=== PATIENT | female | born 1990 | race Caucasian/White ===

== ENCOUNTER → 2023-06-24 | Outpatient (REF) | payer BC, SELFPAY | LOC: DHSLP | PROVIDERS: ATTENDING PHYSICIAN Internal Medicine; FAMILY PHYSICIAN Family Medicine | DX: G47.33 Obstructive sleep apnea (adult) (pediatric) (principal) | CPT/HCPCS: 95800 ==

== ENCOUNTER → 2023-06-25 15:43 | Outpatient (REF) | payer BC, SELFPAY | LOC: RAD 15:43 | PROVIDERS: ATTENDING PHYSICIAN Family Medicine | DX: M54.50 Low back pain, unspecified (principal) | CPT/HCPCS: 72110 ==

== ENCOUNTER → 2024-02-25 16:18 | Outpatient (REF) | payer BC, SELFPAY | LOC: RAD 16:18 | PROVIDERS: ATTENDING PHYSICIAN Family Medicine | DX: M25.572 Pain in left ankle and joints of left foot (principal) | CPT/HCPCS: 73610 ==

== ENCOUNTER 2024-06-01 04:38 | Emergency (ER) | payer BC, SELFPAY ==
[2024-06-01 04:40] VITALS: BP 169/116
--- NOTE | 2024-06-01 04:59 | ED.GENMED ---
History of Present Illness
General
Chief Complaint: Flank Pain
Source: patient and previous hospital records (ED visit September 2028 for similar complaints of right flank pain, hematuria. CAT scan revealed 3 mm stone right UVJ with mild hydronephrosis.)
Exam Limitations: none
Time Seen by Provider: 06/01/24 04:50
Nursing documentation reviewed up to this point in time: agreed with
History of Present Illness
History of Present Illness:
This is a 33-year-old woman who presents with abrupt onset of moderate right flank pain that radiates around to her right lower quadrant that woke her from sleep approximately 30 minutes prior to arrival. She did note moderate hematuria upon waking
without dysuria nor urinary frequency. She admits to nausea without vomiting. No fever but admits to mild diaphoresis and feeling somewhat restless. She has history of kidney stones having passed a stone September 2018 and then again 2 years ago.
Current symptoms feel very similar to previous episodes of renal colic.
She denies risk of ; last normal menstrual period began 1 week ago, normal and on time.
She has not taken anything for pain.
Past History
Past History
ED Past Medical History: GERD and Other (Kidney stones); Negative Asthma, HTN, Hypercholesterolemia or NIDDM
ED Past Surgical History: None
Social History
Tobacco: Non-smoker
Alcohol: None
Drug: None
Personal: Single
Living: with family
Employment: Employed
Family History
Family History: Other (Brother with history of kidney stones)
Phy Exam
Physical Exam
Physical Exam:
GENERAL: 33-year-old obese woman appears her stated age. Awake and alert, appears mildly uncomfortable, mildly restless but easily communicative.
EYE: anicteric
NECK: Supple, nontender, no meningismus, no significant adenopathy.
ENT: oral mucosa is moist. No rhinorrhea.
CARDIAC: Regular rate and rhythm. no murmur.
LUNGS: Clear breath sounds bilaterally, no acute respiratory distress, no wheezes/rales/rhonchi
ABDOMEN: Rotund, soft, nondistended, without focal tenderness, no r/g, mild right CVA tenderness with percussion. Normoactive BS.
NEUROLOGICAL: Alert and oriented x3, no focal neuro deficits. Gait is richardson and steady.
SKIN: Warm and mildly diaphoretic, minimally pale in color, skin intact. No rash.
MUSCULOSKELETAL: No C/C/E. peripheral pulses are full and equal b/l. No palpable tenderness.
PSYCH: Normal and appropriate interaction.
Course
Orders/Labs/Results
Orders:
Orders
06/01/24 04:49
Urine Reflex Culture from UA [Urinalysis Reflex To Culture] Urgent
Date Specimen was Collected: 06/01/24
Time Specimen was Collected: 04:49
06/01/24 04:54
CT Abd/pel Without Iv Or Oral Urgent
Comment:
Reason For Exam: acute R flank pain; hematuria
06/01/24 04:57
0.9% Sodium Chloride 1000 ml [Nss] 1,000 ml IV BOLUS
Ketorolac [Toradol] 30 mg IV NOW STA
Ondansetron Injectable [Zofran] 4 mg IV NOW STA
06/01/24 05:09
Complete Blood Count/With Diff Urgent
Comprehensive Metabolic Panel Urgent
06/01/24 05:39
Tamsulosin [Flomax] 0.4 mg PO NOW STA
Abnormal Lab Results
06/01/24
05:09
Hgb 11.4 L g/dL
(12.0-16.0)
Hct 35.5 L %
(37.0-47.0)
MCV 77.7 L fL
(81.0-99.0)
MCH 24.9 L pg
(27.0-31.0)
MCHC 32.1 L g/dL
(33.0-37.0)
RDW 14.8 H %
(11.5-14.5)
Abs Immat Gran (auto) 0.1 H 10^3/uL
(0-0.05)
Immature Gran % 0.7 H %
(0-0.5)
BUN 19 H mg/dl
(7-17)
Glucose 102 H mg/dl
(70-99)
06/01/24 05:09
06/01/24 05:09
Vital Signs
Initial and Last Documented VS:
Initial Vital Signs
Temp Pulse Resp BP Pulse Ox
99.1 F 96 18 169/116 97
06/01/24 04:40 06/01/24 04:40 06/01/24 04:40 06/01/24 04:40 06/01/24 04:40
Last Documented Vital Signs
Temp Pulse Resp BP Pulse Ox
99.1 F 96 18 169/116 97
06/01/24 04:40 06/01/24 04:40 06/01/24 04:40 06/01/24 04:40 06/01/24 04:40
MDM/Problems Addressed
Differential Diagnosis Includes:
Concern for renal colic related to ureteric stone, concern for UTI/pyelonephritis.
Musculoskeletal flank pain, bowel obstruction are considered but unlikely.
Will check labs, urinalysis and plan for CT abdomen pelvis.
Will medicate for pain and nausea with Toradol, Zofran and initiate IV fluids.
Chronic conditions affecting care: Other (History of kidney stones)
*Radiology
Radiology exam reviewed: radiology read reviewed
*Pulse Oximetry
Patient hypoxic: no
*Critical Care Note
Total Time (30-74mins, 75-104mins- exclusive of procedures): Not Applicable
Update Note
Update Note:
05:45
Patient resting comfortably and reports moderate improvement in right flank pain. No further nausea. No further diaphoresis.
CAT scan shows a 3 mm stone proximal right ureter with mild hydronephrosis.
CBC is unremarkable. Chemistries and urinalysis are pending.
Will continue IV fluids, give a dose of tamsulosin and continue to observe.
06:30
Patient remains comfortable, pain-free. No further nausea.
Urinalysis pending but patient has had no UTI symptoms, remains afebrile. Low clinical suspicion for UTI.
Will discharge to home with prescription for oral Toradol, Flomax, as needed Zofran and as needed Percocet. Patient
Has an established urologist; recommend she touch base with her urologist today to schedule follow-up appointment.
Return precautions discussed.
ED Attending Note
-
Portions of this chart may have been created with voice recognition software.� Occasional wrong word or��sound alike� substitutions may have occurred due to the inherent limitations of voice recognition software.
Discharge Plan
Departure
Patient Disposition: Home (Routine Discharge)
Date of Disposition: 06/01/24
Time of Disposition: 06:25
Patient with high blood pressure during this ER visit?: No
Condition: Good
Discharge Problem:
Calculus of proximal right ureter
Instructions: Kidney Stones (DC)
Prescriptions:
New
ketorolac 10 mg tablet
10 mg PO Q6H 5 Days Qty: 20 0RF
oxycodone-acetaminophen [Percocet] 5-325 mg Tablet
1 tab PO Q6HPRN PRN (Reason: pain) Qty: 8 0RF
tamsulosin [Flomax] 0.4 mg Capsule
0.4 mg PO DAILY Qty: 14 0RF
ondansetron 4 mg tablet,disintegrating
4 mg PO QID PRN (Reason: nausea and vomiting) Qty: 20 0RF
No Action
omeprazole magnesium [Prilosec OTC] 20 MG tablet,delayed release (DR/EC)
20 mg PO DAILY
cetirizine [Zyrtec] 10 mg Tablet
10 mg PO DAILY
bupropion HCl 150 mg Tablet Extended Release 24 Hr
150 mg PO DAILY
cholecalciferol (vitamin D3) [Vitamin D3] 25 mcg (1,000 unit) Tablet
25 mcg PO DAILY
vitamin U13-stibx acid 500-400 mcg Tablet
1 tab PO DAILY
escitalopram oxalate 20 mg Tablet
20 mg PO DAILY
Referrals:
Thea Marroquin MD [Family Provider] -
Activity Restrictions/Additional Instructions:
Stay well-hydrated on a daily basis.
Call your urologist today to schedule a follow-up appointment.
Interventions
Interventions:
*Risk Screen - Suicide Last Done: 06/01/24 04:40
*General Assessment Last Done: 06/01/24 04:40
*Neglect/Abuse Screening Last Done: 06/01/24 04:40
*ED- Fall Risk Assessment Last Done: 06/01/24 04:40
*ED COVID-19 Vaccine History Last Done: 06/01/24 04:40
SK-Wnmafd-Xcltemnfpy Assessment Last Done: 06/01/24 05:14
ED-Female Genitourinary Assessment Last Done: 06/01/24 05:14
Discharge Date and Time
Print Language: MOSOTHO
[2024-06-01 05:00] VITALS: BMI 81.4
[2024-06-01] MEDS: TORADOL 30 MG IV (05:07)
[2024-06-01] MEDS: ZOFRAN 4 MG IV (05:08)
[2024-06-01] MEDS: NSS 1000 IV (05:08)
[2024-06-01 05:21] LABS: % Basophils 0.6 % (0-2); % Eosinophils 2.5 % (0-6); % Immature Granulocytes 0.7 % (0-0.5); % Lymphocytes 26.3 % (20.5-51.1); % Monocytes 4.8 % (1.7-9.3); % Neutrophils 65.1 % (42.2-75.2); Absolute Basophils 0.1 10^3/uL (0-0.2); Absolute Eosinophils 0.2 10^3/uL (0-0.7); Absolute Immature Granulocytes 0.1 10^3/uL (0-0.05); Absolute Lymphocytes 2.5 10^3/uL (1.2-3.4); Absolute Monocytes 0.5 10^3/uL (0.1-0.6); Absolute Neutrophils 6.1 10^3/uL (1.4-6.5); Hematocrit 35.5 % (37.0-47.0); Hemoglobin 11.4 g/dL (12.0-16.0); Mean Corp Hgb Conc. 32.1 g/dL (33.0-37.0); Mean Corpuscular Hgb 24.9 pg (27.0-31.0); Mean Corpuscular Volume 77.7 fL (81.0-99.0); Mean Platelet Volume 9.4 fL (7.4-10.4); Nucleated Red Blood Cells % 0 %; Platelet Count 331 10^3/uL (130-400); Red Blood Cell Count 4.57 10^6/uL (4.20-5.40); Red Cell Dist. Width 14.8 % (11.5-14.5); White Blood Cell Count 9.4 10^3/uL (4.8-10.8)
[2024-06-01 05:45] LABS: ALT (SGPT) 14 U/L (0-35); AST (SGOT) 15 U/L (14-36); Albumin 4.5 g/dl (3.5-5.0); Alkaline Phosphatase 117 U/L (38-126); Blood Urea Nitrogen 19 mg/dl (7-17); Calcium 9.7 mg/dl (8.4-10.2); Carbon Dioxide 26 mmol/L (22-30); Chloride 106 mmol/L (98-107); Estimated Creatinine Clearance > 125 ml/min; Glucose 102 mg/dl (70-99); Potassium 4.2 mmol/L (3.5-5.1); Sodium 143 mmol/L (135-145); Total Bilirubin 0.4 mg/dl (0.2-1.3); Total Protein 7.7 g/dl (6.3-8.2); eGFR > 60.00
[2024-06-01] MEDS: FLOMAX 0.4 MG PO (05:57)
[2024-06-01 06:47] VITALS: BP 140/78
[2024-06-01 07:01] LABS: Urine Albumin 3+ (Neg - Trace); Urine Bilirubin Negative (Negative); Urine Character Cloudy (Clear); Urine Color Amber; Urine Glucose Negative (Negative); Urine Ketone 1+ (Negative); Urine Leukocyte 1+ (Negative); Urine Nitrite Positive (Negative); Urine Occult Blood 4+ (Negative); Urine Urobilinogen 1+ (Neg - 1+)
[2024-06-01 07:15] LABS: Urine Amorphous Seen; Urine Mucus Many; Urine Red Blood Cell >100 /HPF (0-2); Urine Squamous Cell >30 /LPF (Few)
[2024-06-01 07:18] LABS: Urine Bacteria Many (Negative); Urine White Cell >100 /HPF (0-5)
== END 2024-06-01 06:52 | disposition home or self-care (01) ==
LOC: EMR 04:38
PROVIDERS: EMERGENCY PHYSICIAN Emergency Medicine; FAMILY PHYSICIAN Family Medicine
DX: N13.2 Hydronephrosis with renal and ureteral calculous obstruction (principal)
CPT/HCPCS: 99284; 96374; 96375; 96361; 74176; 80053; 81003; 81015; 85025; 87086

== ENCOUNTER 2024-06-07 11:38 | Inpatient (IN) | payer BC, SELFPAY ==
[2024-06-07] VITALS (22 sets, daily range): BP systolic 120–195; BP diastolic 65–98; BMI 79.8
--- NOTE | 2024-06-07 04:48 | ED.GENMED ---
History of Present Illness
General
Chief Complaint: Fever
Source: patient
Exam Limitations: none
Time Seen by Provider: 06/07/24 04:47
Nursing documentation reviewed up to this point in time: agreed with
History of Present Illness
History of Present Illness:
33-year-old female with a past medical history of GERD, renal stones, who presents emergency department today with concerns of fevers and chills, as well as vomiting and right sided flank pain. Patient reports that this started around 2 hours prior
to arrival to emergency department. Of note, patient was seen in our ER a week ago for a kidney stone on her right side. It is around 5 mm in size. Patient states that she was given Toradol, oxycodone, and Flomax to go home with. Patient states
that she thought the stone passed 3 days ago because she was using the bathroom and thought she heard a sound in the toilet bowl and her pain has been well-controlled however the pain restarted again yesterday. She called her urologist who believes
that the stone might pass and encouraged her to continue to do conservative pain management. Patient reports that she went to bed that night and when she woke up, she will really cold and started to have tremors and took her temperature and noted
that was 101.7. Patient had 3 episodes of vomiting. She denies any burning with urination, any blood in her urine. She had some mild epigastric discomfort which she noticed after vomiting.
Past History
Past History
ED Past Medical History: GERD and Other (Kidney stones); Negative Asthma, HTN, Hypercholesterolemia or NIDDM
ED Past Surgical History: None
Social History
Tobacco: Non-smoker
Alcohol: None
Drug: None
Personal: Single
Living: with family
Employment: Employed
Family History
Family History: Other (Brother with history of kidney stones)
Review of Systems
Review of Systems
All Other Systems: ROS reviewed and negative except as documented in HPI and ROS
Phy Exam
Physical Exam
Physical Exam:
General: Patient is well appearing and in no acute distress; non-toxic
Skin: Warm and dry, no rashes or lesions
Head: Normocephalic, atraumatic
Eyes: Sclera non-icteric. EOMs intact. PERRLA.
Cardiac: Tachycardia noted otherwise regular rhythm, no murmurs
Peripheral Vascular: No lower extremity swelling or edema
Pulm: Normal respiratory effort, no wheezes, rales, or rhonchi
Abdomen: No abdominal tenderness to palpation, no CVA tenderness
Neuro: CN II-XII intact, no focal neurologic deficits.
Psychiatric: Appropriate mood and affect.
Sepsis
Sepsis Screening
Sepsis Assessment: Sepsis
Sepsis Screen
Sepsis Screen: Sepsis
Date: 06/07/24
Time: 09:56
Course
Orders/Labs/Results
Orders:
Orders
06/07/24 04:48
Test Result ONCE
06/07/24 05:04
0.9% Sodium Chloride 1000 ml [Nss] 1,000 ml IV BOLUS
Acetaminophen [Tylenol] 1,000 mg PO NOW STA
Ondansetron Injectable [Zofran] 4 mg IV NOW STA
06/07/24 05:05
CT Abd/pel Without Iv Or Oral Urgent
Comment:
Reason For Exam: rgiht flank pain
06/07/24 05:16
CMP [Comprehensive Metabolic Panel] Urgent
COVID-19 Antigen Urgent
Source: Nasal Swab
Complete Blood Count/With Diff Urgent
HCG, Serum Qualitative Screen Urgent
Lactate Level [Lactic Acid] Urgent
Lipase Urgent
Urinalysis Reflex To Culture Urgent
Date Specimen was Collected: 06/07/24
Time Specimen was Collected: 04:48
Urine Microscopic Reflex Cult Urgent
Influenza A+B Rapid Molecular Urgent
CHIRAG Source: Nasal Swab
Specimen Description:
Urine Culture Urgent
CHIRAG Source: U
Specimen Description:
Date Specimen was Collected: 06/07/24
Time Specimen was Collected: 04:48
06/07/24 07:13
CefTRIAXone [Rocephin] 2,000 mg IV NOW STA
06/07/24 07:25
Sterile Water [Sterile Water For Injection] 20 ml .ROUTE .STK-MED
06/07/24 07:30
Gentamicin Sulfate [Gentamicin] 200 mg 0.9% Sodium Chloride [Nss] 50 ml IV NOW
Ketorolac [Toradol] 15 mg IV NOW STA
06/07/24 09:36
Admit/Transfer Patient As Directed
Co-Sign Provider:
Level of Care: Inpatient admission
Assign to:: IMU- Intermediate Care
Physician / Group: Adonay
Diagnosis: R ureterolithiasis
Reason for Hospitalization: R ureterolithiasis
Expected length of stay greater than two midnights?: Yes
ELOS- Estimated Length of Stay in days: 3
I certify the patient meets the requirements for IP care: Yes
06/07/24 09:37
Code Status As Directed
Resuscitation Status: Full Code
06/07/24 Lunch
NPO
Allow oral meds: No
Allow clear liquids: No
NPO with Ice Chips: No
Abnormal Lab Results
06/07/24
05:16
WBC 13.6 H 10^3/uL
(4.8-10.8)
RBC 4.19 L 10^6/uL
(4.20-5.40)
Hgb 10.6 L g/dL
(12.0-16.0)
Hct 32.3 L %
(37.0-47.0)
MCV 77.1 L fL
(81.0-99.0)
MCH 25.3 L pg
(27.0-31.0)
MCHC 32.8 L g/dL
(33.0-37.0)
RDW 14.6 H %
(11.5-14.5)
Abs Immat Gran (auto) 0.1 H 10^3/uL
(0-0.05)
Absolute Neuts (auto) 12.2 H 10^3/uL
(1.4-6.5)
Absolute Lymphs (auto) 0.7 L 10^3/uL
(1.2-3.4)
Immature Gran % 0.7 H %
(0-0.5)
Neutrophils % 89.4 H %
(42.2-75.2)
Lymphocytes % 4.9 L %
(20.5-51.1)
Glucose 112 H mg/dl
(70-99)
Ur Occult Blood Reflex 2+ A
(Negative)
Leukocyte Esterase Rfl 2+ A
(Negative)
Urine RBC 11-15 A /HPF
(0-2)
Urine WBC (Reflex) 11-15 A /HPF
(0-5)
Urine Bacteria (Reflex) Many A
(Negative)
Urine Albumin (Reflex) 1+ A
(Neg - Trace)
06/07/24 05:16
06/07/24 05:16
Vital Signs
Initial and Last Documented VS:
Initial Vital Signs
Temp Pulse Resp BP Pulse Ox
103.0 F H 122 30 149/80 96
06/07/24 05:02 06/07/24 05:02 06/07/24 05:02 06/07/24 05:02 06/07/24 05:02
Last Documented Vital Signs
Temp Pulse Resp BP Pulse Ox
99.8 F 113 36 120/72 98
06/07/24 08:37 06/07/24 08:15 06/07/24 08:15 06/07/24 08:24 06/07/24 08:15
MDM/Problems Addressed
Differential Diagnosis Includes:
ddx include UTI, pyelo, renal stone, influenza, COVID-19, gastroenteritis/viral syndrome
MDM/Problems Addressed:
History and presentation concerning for infected renal stone. No other explanation for patient's fever. Urinalysis concerning for infection. Discussed case with urology, will start Rocephin and gentamicin, made NPO, pt referred for admission.
*Critical Care Note
Total Time (30-74mins, 75-104mins- exclusive of procedures): Not Applicable
ED Attending Note
-
Portions of this chart may have been created with voice recognition software.� Occasional wrong word or��sound alike� substitutions may have occurred due to the inherent limitations of voice recognition software.
Discharge Plan
Departure
Patient Disposition: Admit
Date of Disposition: 06/07/24
Time of Disposition: 07:30
Admit to: Med/Surg
Presentation/result/management discussed w/ accepting MD/DO: Hospitalist
Patient with high blood pressure during this ER visit?: Yes
Condition: Fair
Discharge Problem:
Nephrolithiasis, Urinary tract infection
Prescriptions:
No Action
omeprazole magnesium [Prilosec OTC] 20 MG tablet,delayed release (DR/EC)
20 mg PO DAILY
cetirizine [Zyrtec] 10 mg Tablet
10 mg PO DAILY
bupropion HCl 150 mg Tablet Extended Release 24 Hr
150 mg PO DAILY
cholecalciferol (vitamin D3) [Vitamin D3] 25 mcg (1,000 unit) Tablet
25 mcg PO DAILY
escitalopram oxalate 20 mg Tablet
20 mg PO DAILY
Ozempic 0.25 mg or 0.5 mg(2 mg/1.5 mL) Pen Injector
0.5 mg SC SA
Patient Comments:
patient has free samples
cyanocobalamin (vitamin B-12) 1,000 mcg Tablet
1,000 mcg PO DAILY
ketorolac 10 mg Tablet
10 mg PO Q6HPRN PRN (Reason: mild pain)
oxycodone-acetaminophen [Percocet] 5-325 mg Tablet
1 tab PO Q6HPRN PRN (Reason: severe pain)
tamsulosin [Flomax] 0.4 mg Capsule
0.4 mg PO DAILY
Rx Instructions:
for 14 days starting 06/01/24
ibuprofen [Advil] 200 mg Tablet
400 mg PO Q6HPRN PRN (Reason: mild pain)
ondansetron [Zofran ODT] 4 mg Tablet,Disintegrating
4 mg PO Q6HPRN PRN (Reason: nausea)
Referrals:
UNKNOWN - PT DOES,NOT KNOW [Family Provider] -
Interventions
Interventions:
*Risk Screen - Suicide Last Done: 06/07/24 04:56
*General Assessment Last Done: 06/07/24 04:57
*Neglect/Abuse Screening Last Done: 06/07/24 04:56
*ED- Fall Risk Assessment Last Done: 06/07/24 04:56
*ED COVID-19 Vaccine History Last Done: 06/07/24 04:56
DB-Zacuqj-Hpgkcoifgm Assessment Last Done: 06/07/24 05:26
ED-Female Genitourinary Assessment Last Done: 06/07/24 05:26
ED- Neurological Assessment Last Done: 06/07/24 07:12
ED-Skin Assessment Last Done: 06/07/24 05:26
Discharge Date and Time
Print Language: WELSH
[2024-06-07] MEDS: TYLENOL 1000 MG PO (05:19)
[2024-06-07] MEDS: NSS 1000 IV ×3 (05:19→21:08)
[2024-06-07] MEDS: ZOFRAN 4 MG IV (05:20)
[2024-06-07 05:31] LABS: % Basophils 0.3 % (0-2); % Eosinophils 1.1 % (0-6); % Immature Granulocytes 0.7 % (0-0.5); % Lymphocytes 4.9 % (20.5-51.1); % Monocytes 3.6 % (1.7-9.3); % Neutrophils 89.4 % (42.2-75.2); Absolute Eosinophils 0.2 10^3/uL (0-0.7); Absolute Immature Granulocytes 0.1 10^3/uL (0-0.05); Absolute Lymphocytes 0.7 10^3/uL (1.2-3.4); Absolute Monocytes 0.5 10^3/uL (0.1-0.6); Absolute Neutrophils 12.2 10^3/uL (1.4-6.5); Hematocrit 32.3 % (37.0-47.0); Hemoglobin 10.6 g/dL (12.0-16.0); Mean Corp Hgb Conc. 32.8 g/dL (33.0-37.0); Mean Corpuscular Hgb 25.3 pg (27.0-31.0); Mean Corpuscular Volume 77.1 fL (81.0-99.0); Mean Platelet Volume 9.7 fL (7.4-10.4); Nucleated Red Blood Cells % 0 %; Platelet Count 253 10^3/uL (130-400); Red Blood Cell Count 4.19 10^6/uL (4.20-5.40); Red Cell Dist. Width 14.6 % (11.5-14.5); White Blood Cell Count 13.6 10^3/uL (4.8-10.8)
[2024-06-07 05:34] LABS: Urine Albumin 1+ (Neg - Trace); Urine Bilirubin Negative (Negative); Urine Character Slightly Cloudy (Clear); Urine Color Yellow; Urine Glucose Negative (Negative); Urine Ketone Negative (Negative); Urine Leukocyte 2+ (Negative); Urine Nitrite Negative (Negative); Urine Occult Blood 2+ (Negative); Urine Urobilinogen Negative (Neg - 1+)
[2024-06-07 05:43] LABS: HCG, Serum Qualitative Screen Negative
[2024-06-07 05:51] LABS: ALT (SGPT) 15 U/L (0-35); AST (SGOT) 19 U/L (14-36); Albumin 4.1 g/dl (3.5-5.0); Alkaline Phosphatase 99 U/L (38-126); Blood Urea Nitrogen 16 mg/dl (7-17); Calcium 9.6 mg/dl (8.4-10.2); Carbon Dioxide 25 mmol/L (22-30); Chloride 105 mmol/L (98-107); Estimated Creatinine Clearance > 125 ml/min; Glucose 112 mg/dl (70-99); Lipase 43 U/L (23-300); Potassium 3.9 mmol/L (3.5-5.1); Sodium 142 mmol/L (135-145); Total Bilirubin 0.4 mg/dl (0.2-1.3); Total Protein 7.2 g/dl (6.3-8.2); eGFR > 60.00
[2024-06-07 05:55] LABS: COVID-19 Antigen Negative (Negative)
[2024-06-07 05:56] LABS: Lactic Acid 1.6 mmol/L (0.7-2.0)
[2024-06-07 06:07] LABS: Urine Squamous Cell >30 /LPF (Few)
[2024-06-07 06:09] LABS: Urine Bacteria Many (Negative)
[2024-06-07] MEDS: ROCEPHIN 2000 MG IV ×2 (07:31→19:37)
[2024-06-07] MEDS: TORADOL 15 MG IV (07:33)
[2024-06-07] MEDS: GENTAMICIN 55 MG IV (07:46)
--- NOTE | 2024-06-07 08:51 | HPS.HSE ---
Family Physician
-
Family Physician: NOT KNOW UNKNOWN - PT DOES
Chief Complaint
-
Right flank pain and fever
History of Present Illness
33 y/o F with PMHx:
Morbid obesity due to excess calories
GERD
who p/w CC R flank pain. The patient was seen in the ER 06/01/24 for similar complaints. She was found to have a 5mm R UPJ stone with minimal right hydronephrosis. She was discharged on Flomax which she has been compliant with. 3 days ago she felt
that she may have passed the stone but did not catch it on straining. Yesterday the patient's symptoms worsened. She reports having vomiting and a fever of 103 �F. Denies any other acute complaints. Presented to the ER for these reasons.
Medical History
Past Medical History
Past Medical History: Reports Other (Morbid obesity due to excess calories, GERD)
Past Surgical History: Reports Other (N/A)
Social History
Tobacco: Non-smoker
Alcohol: None
Drug: None
Family History
Family History: Not pertinent
Allergies / Home Medications
Allergies reflects when Allergies were last updated in [facility].
Home Medications with original date entered in [facility]
Allergy/Medication List:
Allergies
Allergy/AdvReac Type Severity Reaction Status Date / Time
amoxicillin [Amoxicillin] Allergy Rash Verified 06/07/24 04:41
Penicillins Allergy Unknown Verified 06/07/24 04:41
sulfamethoxazole Allergy Itching Verified 06/07/24 04:41
[From Bactrim]
trimethoprim [From Bactrim] Allergy Itching Verified 06/07/24 04:41
Home Medications
omeprazole magnesium 20 mg tablet,delayed release (Prilosec OTC) 20 mg PO DAILY 10/17/18
bupropion HCl 150 mg 24 hr tablet, extended release 150 mg PO DAILY 06/01/24
cetirizine 10 mg tablet (Zyrtec) 10 mg PO DAILY 06/01/24
cholecalciferol (vitamin D3) 25 mcg (1,000 unit) tablet (Vitamin D3) 25 mcg PO DAILY 06/01/24
escitalopram oxalate 20 mg tablet 20 mg PO DAILY 06/01/24
cyanocobalamin (vitamin B-12) 1,000 mcg tablet 1,000 mcg PO DAILY 06/07/24
ibuprofen 200 mg tablet (Advil) 400 mg PO Q6HPRN PRN mild pain 06/07/24
ketorolac 10 mg tablet 10 mg PO Q6HPRN PRN mild pain 06/07/24
ondansetron 4 mg disintegrating tablet 4 mg PO Q6HPRN PRN nausea 06/07/24
oxycodone-acetaminophen 5 mg-325 mg tablet (Percocet) 1 tab PO Q6HPRN PRN severe pain 06/07/24
semaglutide 0.25 mg or 0.5 mg (2 mg/1.5 mL) subcutaneous pen injector (Ozempic) 0.5 mg SC SA 06/07/24
tamsulosin 0.4 mg capsule (Flomax) 0.4 mg PO DAILY 06/07/24
Review of Systems
-
History Source: Patient
A 12 point ROS was completed and negative except as noted: Yes
Physical Exam
Vital Signs
Vital Signs
Temp Pulse Resp BP Pulse Ox
99.8 F 113 36 120/72 98
06/07/24 08:37 06/07/24 08:15 06/07/24 08:15 06/07/24 08:24 06/07/24 08:15
Physical Exam
General: Other (.)
Laboratory Results
-
06/07/24 05:16
06/07/24 05:16
Laboratory Results
Lactic Acid 1.6 mmol/L (0.7-2.0) 06/07/24 05:16
Total Bilirubin 0.4 mg/dl (0.2-1.3) 06/07/24 05:16
AST 19 U/L (14-36) 06/07/24 05:16
ALT 15 U/L (0-35) 06/07/24 05:16
Alkaline Phosphatase 99 U/L (38-126) 06/07/24 05:16
Lipase 43 U/L (23-300) 06/07/24 05:16
Impression/Plan
-
Gen: NAD, AAOx3.
Eyes: EOMI, PERRLA, no scleral icterus.
Neck: supple.
CV: tachycardic, reg rhythm, +S1/S2, no m/r/g.
Resp: CTAB, no rales, wheezes, or rhonchi.
Abd: +BS, soft, R-sided TTP, ND
Skin: No rashes.
Neuro: CN 2-12 intact, non-focal.
Psych: Normal mood and affect.
CT A/P 06/07/24:
1. 5 mm stone within the proximal right ureter, located approximately 2 cm inferior to the right ureteropelvic junction. This stone has migrated approximately 1 cm distally compared to prior CT dated 06/01/2024. Mild right hydronephrosis is not
significantly changed compared to prior study.
2. No additional stones are appreciated.
Sepsis and mild right hydronephrosis due to 5mm right ureterolithiasis:
-Sepsis criteria of leukocytosis, tachycardia, and fever of 103 F at home. Note urinalysis is contaminated with greater than 30 squamous cells.
-given Gentamicin and Rocephin in the ER
-cont Rocephin 2g IV Q24H due to weight (discussed with Dr. Cunningham who has been consulted)
-aggressive IVFs
-Urology consulted, for OR for R ureteral stent placement
-admit to IMU as these pts can have rapid hemodynamic decompensation.
Morbid obesity due to excess calories
GERD: cont PPI
Case discussed with Drs. BellAngela over [employer] and Dr. Cunningham over the phone.
Family updated at bedside.
FULL/Lovenox/IMU
--- NOTE | 2024-06-07 10:29 | CONS.URO ---
Consultation
-
Date/Time Consultation Performed: 06/07/2024
Requesting Provider: ED
Performing Provider: Erick
Reason for Consultation: Right Ureteral Stone + sepsis
Medical History
History of Present Illness
Dr. Urias's admission note, excerpt: 'The patient was seen in the ER 06/01/24 for similar complaints. She was found to have a 5mm R UPJ stone with minimal right hydronephrosis. She was discharged on Flomax which she has been compliant with. 3 days
ago she felt that she may have passed the stone but did not catch it on straining. Yesterday the patient's symptoms worsened. She reports having vomiting and a fever of 103 �F. '
no personal prior stone hx
FH of stones with sepsis
Past Medical History
Past Medical History: Other (morbid obesity)
Past Surgical History: None
Social History
Personal: Single
Living: With Family
Family History
Family History: Other (stones with sepsis)
Allergies/Home Medications
Allergies
Allergy/AdvReac Type Severity Reaction Status Date / Time
amoxicillin [Amoxicillin] Allergy Rash Verified 06/07/24 04:41
Penicillins Allergy Unknown Verified 06/07/24 04:41
sulfamethoxazole Allergy Itching Verified 06/07/24 04:41
[From Bactrim]
trimethoprim [From Bactrim] Allergy Itching Verified 06/07/24 04:41
Home Medications
�Medication �Instructions �Recorded �Confirmed �Type
omeprazole magnesium 20 mg 20 mg PO DAILY 10/17/18 06/07/24 History
tablet,delayed release (Prilosec
OTC)
bupropion HCl 150 mg 24 hr tablet, 150 mg PO DAILY 06/01/24 06/07/24 History
extended release
cetirizine 10 mg tablet (Zyrtec) 10 mg PO DAILY 06/01/24 06/07/24 History
cholecalciferol (vitamin D3) 25 25 mcg PO DAILY 06/01/24 06/07/24 History
mcg (1,000 unit) tablet (Vitamin
D3)
escitalopram oxalate 20 mg tablet 20 mg PO DAILY 06/01/24 06/07/24 History
cyanocobalamin (vitamin B-12) 1,000 mcg PO DAILY 06/07/24 06/07/24 History
1,000 mcg tablet
ibuprofen 200 mg tablet (Advil) 400 mg PO Q6HPRN PRN mild pain 06/07/24 06/07/24 History
ketorolac 10 mg tablet 10 mg PO Q6HPRN PRN mild pain 06/07/24 06/07/24 History
ondansetron 4 mg disintegrating 4 mg PO Q6HPRN PRN nausea 06/07/24 06/07/24 History
tablet
oxycodone-acetaminophen 5 mg-325 1 tab PO Q6HPRN PRN severe pain 06/07/24 06/07/24 History
mg tablet (Percocet)
semaglutide 0.25 mg or 0.5 mg (2 0.5 mg SC SA 06/07/24 06/07/24 History
mg/1.5 mL) subcutaneous pen
injector (Ozempic)
tamsulosin 0.4 mg capsule (Flomax) 0.4 mg PO DAILY 06/07/24 06/07/24 History
Review of Systems
-
History Source: Patient
Constitutional: Reports Fever and Chills
Respiratory: Reports No Symptoms
Cardiac: Reports No Symptoms
Abdomen/GI: Reports Nausea and Vomiting
Neurological: Reports Headache
Physical Exam
Vital Signs
Vital Signs
Temp Pulse Resp BP Pulse Ox
99.8 F 113 36 120/72 98
06/07/24 08:37 06/07/24 08:15 06/07/24 08:15 06/07/24 08:24 06/07/24 08:15
Lab / Testing Results
Laboratory Results
06/07/24 05:16
06/07/24 05:16
Physical Exam
adult female on ED gurney
General: Other (upset; mother at bedside)
GI: Other (pannus)
Genito-urinary: Costovertebral Angle Tend (right)
Neuro: Awake and Alert
Psych: Anxious
Assessment / Plan
-
Right ureteral stone: 5 mm, proximal, obstructing
signs of evolving urosepsis
Plan: emergently to OR for dislodgement of right ureteral stone and stent placment
consent signed in presence of mother in OR holding
Data Reviewed
-
CT Scan: Image personally visualized and interpreted
Lab Data: Labs Reviewed
Old Records: Reviewed
--- NOTE | 2024-06-07 11:25 | W.IMMPOSTOP ---
Surgical Immed Post Op Note
-
Primary Surgeon: Erick
Pre-op Diagnosis: Right Ureteral Calculus: 5 mm, proximal, obstructing; UTI with evolving sepsis
Post-op Diagnosis:same
Procedure Performed: cystoscopy,dislodgement of right ureteral stone, ureteral stenting
Anesthesia Type: LMA
Specimen / Cultures: none
Estimated Blood Loss: none
Complications: none
Operative Findings: 5 mm, proximal ureteral stone; upon dislodgement, purulent urine propulsed from ureter via and along stent
6 Fr, 24 JJ right ureteral stent
d/w mother immediately post-op
[2024-06-07] MEDS: SUBLIMAZE 50 MCG IV ×2 (13:14→13:33)
--- NOTE | 2024-06-07 13:25 | CON.ID ---
Consultation
-
Date/Time Consultation Requested: 06/07/24 10:09
Date/Time Consultation Performed: 06/07/24 13:25
Requesting Provider: Dr Urias
Performing Provider: Dr Cunningham
Reason for Consultation: sepsis due to UTI/ureterothiasis
Chief Complaint / Past History
Chief Complaint
UTI
History of Present Illness
Ms Clifford is a 31 year old female with history of class 3 obesity (BMI 80) who presented here for R flank pain, of note with a known 5 mm R UPJ stone with minimal right hydronephrosis, treatment was attempted with floxmax 06/01, she initially felt
that she might have pass the stone as symptoms improved though she did not see it on straining, then 06/06 yesterday the symptoms relapsed and progressed, she developed vomiting and fever to 103 and presented here
Since arrival here she has been spiking fevers to 103.0, bp has been hypertensive, mildly tachycardic, wbc initially 13.6, hgb 10.6, plt 253, L shift is noted, cr 0.8, lfts wnl, hcg negative, initial UA with >30 squamous cells and 11-15 wbcs, many
bacteria, covid ag negative, CT a/p without IV or oral contrast: 5 mm stone within the proximal right ureter, located approximately 2 cm inferior to the right ureteropelvic junction. This stone has migrated approximately 1 cm distally compared to
prior CT dated 06/01/2024. Mild right hydronephrosis is not significantly changed compared to prior study, urine culture was obtained prior to relief of obstuction, patient was taken to the OR '5 mm, proximal ureteral stone; upon dislodgement,
purulent urine propulsed from ureter via and along stent' however was not sent for culture. I have ordered stat urine culture to be obtained in the PACU, blood cultures x2 are in progress, patient has received a dose a gentamicin and ceftriaxone,
ID is consulted for assistance with management of antibiotics.
Past History
Additional Past Medical History:
GERD
Past Surgical History: None
Allergy History:
amoxicillin [Amoxicillin] Allergy (Verified 06/07/24 04:41)
Rash
Penicillins Allergy (Verified 06/07/24 04:41)
Unknown
sulfamethoxazole [From Bactrim] Allergy (Verified 06/07/24 04:41)
Itching
trimethoprim [From Bactrim] Allergy (Verified 06/07/24 04:41)
Itching
Medications Reviewed: Yes
Social History
Tobacco: Non-Smoker
Alcohol: None
Drug: None
Family History
Family History: Not Pertinent
Review of Systems
Review of Systems
General: Fever and Chills
All systems: All other systems were reviewed and were negative
Vital Signs
Temp Pulse Resp BP Pulse Ox
97.8 F 102 25 145/79 92
06/07/24 11:30 06/07/24 13:15 06/07/24 13:15 06/07/24 13:15 06/07/24 13:15
Physical Exam
Physical Exam
Constitutional: No Acute Distress and Acutely Ill
Cardiovascular: Regular Rate and S1/S2; Negative Murmur or Rub
Pulmonary: Clear and Symmetric; Negative Wheezes, Rales or Rhonchi
Gastrointestinal: Soft, Non Tender, Non Distended and Normal Bowel Sounds
Genito-Urinary: Negative Suprapubic Tenderness
Skin: Warm and Dry; Negative Rash or Jaundice
Lab / Diagnostic Study Results
06/07/24 05:16
06/07/24 05:16
Abs Immat Gran (auto) 0.1 10^3/uL (0-0.05) H 06/07/24 05:16
Absolute Neuts (auto) 12.2 10^3/uL (1.4-6.5) H 06/07/24 05:16
Absolute Lymphs (auto) 0.7 10^3/uL (1.2-3.4) L 06/07/24 05:16
Absolute Monos (auto) 0.5 10^3/uL (0.1-0.6) 06/07/24 05:16
Absolute Basos (auto) 0.0 10^3/uL (0-0.2) 06/07/24 05:16
Immature Gran % 0.7 % (0-0.5) H 06/07/24 05:16
Neutrophils % 89.4 % (42.2-75.2) H 06/07/24 05:16
Lymphocytes % 4.9 % (20.5-51.1) L 06/07/24 05:16
Monocytes % 3.6 % (1.7-9.3) 06/07/24 05:16
Eosinophils % 1.1 % (0-6) 06/07/24 05:16
Basophils % 0.3 % (0-2) 06/07/24 05:16
Lactic Acid 1.6 mmol/L (0.7-2.0) 06/07/24 05:16
Ur Squamous Epith Cells >30 /LPF (Few) 06/07/24 05:16
Microbiology Results
Micro:
06/07/24 12:36 Blood Culture - Pending
Blood/Venous
06/07/24 12:50 Blood Culture - Pending
Blood/Venous
06/07/24 12:00 Urine Culture - Pending
Urine
06/07/24 05:16 Influenza Types A & B (NELL) - Final
Nasal Swab Negative for Influenza A & B, NAAT
Negative results must be combined with clinical observations
and patient history.
Nucleic Acid Amplification test (NAAT)performed on the
[employer] NOW platform.
06/07/24 05:16 Urine Culture - Pending
Urine
Assessment / Plan
Obstructive Pyelonephritis
Class III obesity
Reported allergy to penicillin, amoxicillin, bactrim
- blood cultures x2
- repeat urine culture now that obstruction relieved - ideally this would have been sent from the OR; note that urine cultures prior to relief of obstruction are frequently falsely negative
- had single dose of gentamicin
- increased ceftriaxone to 2 gm IV q12 hours given BMI >40 - reviewed with clinical pharmacist Jennifer Quintanilla
- check QTc
- follow clinically
- recommend outpatient follow up with [facility] for medical weight loss management or bariatric surgery which would improve intermediate morbidity/mortality.
--- NOTE | 2024-06-07 16:00 | PTCARENOTE ---
Patient received from PACU. AUSTIN GOLDEN. Questions answered at bedside from PSYCHOLOGIST. IVF @ 150mL through IV. Admission questions done. Oriented to room. Mother at bedside. Call ocasio in reach.
[2024-06-07] MEDS: NSS (PRESERVATIVE FREE) 10 ML IV (16:17)
[2024-06-07] MEDS: PROTONIX IV 40 MG IV (16:17)
[2024-06-07] MEDS: TYLENOL 650 MG PO (16:26)
[2024-06-07] MEDS: LOVENOX 60 MG SC (18:18)
[2024-06-07] MEDS: STERILE WATER FOR INJECTION 20 ML IV (19:37)
[2024-06-08] VITALS (29 sets, daily range): BP systolic 85–176; BP diastolic 62–113; PULSE 95
--- NOTE | 2024-06-08 01:02 | PTCARENOTE ---
Caring for pt overnight. aaox3, pleasant. NSR/ST, remains 5LNC, GALLARDO. BSCX1. Denies pain. Yellow urine. IVF. Will continue to monitor.
[2024-06-08] MEDS: NSS 1000 IV (04:08)
--- NOTE | 2024-06-08 06:29 | PTCARENOTE ---
Bp's trending up this am. Afebrile, denies pain. [employer] aware, IVF stopped & orders to monitor.
[2024-06-08 06:31] LABS: Hematocrit 29.5 % (37.0-47.0); Hemoglobin 9.8 g/dL (12.0-16.0); Mean Corp Hgb Conc. 33.2 g/dL (33.0-37.0); Mean Corpuscular Hgb 25.1 pg (27.0-31.0); Mean Corpuscular Volume 75.6 fL (81.0-99.0); Mean Platelet Volume 9.7 fL (7.4-10.4); Platelet Count 214 10^3/uL (130-400); Red Cell Dist. Width 14.7 % (11.5-14.5); White Blood Cell Count 7.5 10^3/uL (4.8-10.8)
--- NOTE | 2024-06-08 07:37 | W.PN.HOSP.TC ---
Today's Communication/Plan
-
see plan
Assessment / Plan
Assessment / Plan
Gen: NAD, AAOx3.
Eyes: EOMI, PERRLA, no scleral icterus.
Neck: supple.
CV: Remains tachycardic, reg rhythm, +S1/S2, no m/r/g.
Resp: CTAB (noting distant breath sounds due to body habitus, no rales, wheezes, or rhonchi.
Abd: +BS, soft, nontender to light palpation, ND
Skin: No rashes.
Neuro: CN 2-12 intact, non-focal.
Psych: Normal mood and affect.
06/07/24 05:16 Nasal Swab Influenza Types A & B (NELL) - Final
Negative for Influenza A & B, NAAT
Negative results must be combined with clinical observations
and patient history.
Nucleic Acid Amplification test (NAAT)performed on the
[email or web address] ID NOW platform.
CT A/P 06/07/24:
1. 5 mm stone within the proximal right ureter, located approximately 2 cm inferior to the right ureteropelvic junction. This stone has migrated approximately 1 cm distally compared to prior CT dated 06/01/2024. Mild right hydronephrosis is not
significantly changed compared to prior study.
2. No additional stones are appreciated.
Sepsis and mild right hydronephrosis due to 5mm right ureterolithiasis:
-Sepsis criteria of leukocytosis, tachycardia, and fever of 103 F at home at time of admission. Note urinalysis was contaminated with greater than 30 squamous cells.
-given Gentamicin and Rocephin in the ER
-cont Rocephin 2g IV Q24H due to weight as per ID
-s/p OF 06/07/24 cystoscopy,dislodgement of right ureteral stone, ureteral stenting. Operative findings of 5 mm, proximal ureteral stone; upon dislodgement, purulent urine propulsed from ureter via and along stent
-follow Cxs
Acute hypoxemic respiratory failure:
-Patient was 81% RA this morning and requiring 5L NC O2
-currently obesity related KENNETH/OHS as well as deconditioning is playing a role
-Differential diagnosis is broad. Check echocardiogram and CT angiogram of the chest.
Other problems:
Morbid obesity due to excess calories: Encourage weight loss, affects all aspects of care.
GERD: cont PPI
FULL/Lovenox
Total time spent on today's encounter was 50 minutes which included time spent in counseling the patient/family regarding diagnosis and treatment plan as listed above, goals of care, and symptom management. Case was discussed with nursing staff,
specialists, and care coordinators/case management. All labs and imaging personally reviewed by me. Remainder the time spent in detailed review of previous records, lab data, imaging, and other medical provider documentation.
Anticipated Discharge: 24 - 48 hours
Subjective/Interval History
-
Date of Service: June 08, 2024
Called to bedside because patient tachypneic and tachycardic. Patient was on 5 L nasal cannula oxygen overnight and tachycardic to the 140s as per nursing. Currently the patient denies shortness of breath but feels that it is difficult to breathe
through her upper airway.
Objective Data
-
Labs:
Laboratory Results
06/08/24 06/08/24
06:01 07:23
WBC 7.5
Hgb 9.8 L
Hct 29.5 L
Plt Count 214
Sodium Cancelled Pending
Potassium Cancelled Pending
Chloride Cancelled Pending
Carbon Dioxide Cancelled Pending
BUN Cancelled Pending
Creatinine Cancelled Pending
Glucose Cancelled Pending
Calcium Cancelled Pending
Vital Signs:
Vital Signs
Temp Pulse Resp BP Pulse Ox
98.2 F 92 18 176/97 92
06/08/24 06:14 06/08/24 06:05 06/08/24 06:05 06/08/24 06:05 06/08/24 06:05
I&O
06/07/24 06/08/24 06/09/24
06:59 06:59 06:59
Intake Total 900 / 900
Balance 900 / 900
--- NOTE | 2024-06-08 07:51 | PTCARENOTE ---
Addendum entered by Soila Pierce RN 06/08/24 08:51:
Patient is also tachypneic in the 30s. Patient stating that she felt this way prior to coming to the hospital.
Original Note:
Patient in bed, dyspnea with exertion, orthopnea. Pulse ox 81% on room air when in bed. Patient stating that she 'feels short of breath since surgery'. Lungs diminished, nonproductive cough. Discussed with Dr. Urias. Pulse is now 97% on 5 liters via
nasal cannula and while sitting up in bed.
[2024-06-08 08:11] LABS: Blood Urea Nitrogen 10 mg/dl (7-17); Calcium 8.8 mg/dl (8.4-10.2); Carbon Dioxide 24 mmol/L (22-30); Chloride 107 mmol/L (98-107); Estimated Creatinine Clearance > 125 ml/min; Glucose 104 mg/dl (70-99); Potassium 3.9 mmol/L (3.5-5.1); Sodium 139 mmol/L (135-145); eGFR > 60.00
[2024-06-08] MEDS: LEXAPRO 20 MG PO (08:40)
[2024-06-08] MEDS: ZYRTEC 10 MG PO (08:40)
[2024-06-08] MEDS: WELLBUTRIN XL (24 hour extended release) 150 MG PO (08:40)
[2024-06-08] MEDS: FLOMAX 0.4 MG PO (08:40)
[2024-06-08] MEDS: SENOKOT-S 1 TABLET PO (08:40)
[2024-06-08] MEDS: NSS (PRESERVATIVE FREE) 10 ML IV (08:42)
[2024-06-08] MEDS: PROTONIX IV 40 MG IV (08:42)
[2024-06-08] MEDS: STERILE WATER FOR INJECTION 20 ML IV ×2 (08:47→19:39)
[2024-06-08] MEDS: ROCEPHIN 2000 MG IV ×2 (08:47→19:39)
[2024-06-08 09:02] LABS: Glycohemoglobin (HgbA1c) 5.2 % (4.0-5.6)
--- NOTE | 2024-06-08 09:26 | W.PN.ID1 ---
Date of Service
Date of Service: June 08, 2024
Today's Communication
- repeat urine culture now that obstruction relieved in progress - ideally this would have been sent from the OR; note that urine cultures prior to relief of obstruction are frequently falsely negative
- c/w ceftriaxone to 2 gm IV q12 hours given BMI >40
- would continue irregardless of procalcitonin results
- doxycycline was added by pulmonary
Assessment / Plan
Obstructive Pyelonephritis
Class III obesity
Reported allergy to penicillin, amoxicillin, bactrim
- doubt pneumonia, more likely pulmonary edema
- blood cultures x2 no growth to date
- repeat urine culture now that obstruction relieved in progress - ideally this would have been sent from the OR; note that urine cultures prior to relief of obstruction are frequently falsely negative
- c/w ceftriaxone to 2 gm IV q12 hours given BMI >40
- would continue irregardless of procalcitonin results
- doxycycline was added by pulmonary
- check QTc
- follow clinically
- she is on ozempic, we discussed option of [facility] as well as an additional line of possible treatment.
Chief Complaint
-: UTI
Subjective / Review of Systems
fever resolved
bp hypertensive
reporting minimal nonproductive cough
Vital Signs / Physical Exam
Vital Signs
Vital Signs
Temp Pulse Resp BP Pulse Ox
98.7 F 87 29 123/90 97
06/08/24 07:05 06/08/24 08:03 06/08/24 08:03 06/08/24 07:11 06/08/24 08:23
Physical Exam
Constitutional: No Acute Distress and Chronically Ill
Cardiovascular: Regular Rate and S1/S2; Negative Murmur or Rub
Pulmonary: Clear, Symmetric and Non Labored; Negative Wheezes or Rales
Gastrointestinal: Soft, Non Tender, Non Distended and Normal Bowel Sounds
Skin: Warm and Dry; Negative Rash or Jaundice
Objective Data
Lab Data
Lab Results
06/08/24 06:01
06/08/24 07:23
Estimated Creat Clear > 125 ml/min 06/08/24 07:23
Lactic Acid 1.6 mmol/L (0.7-2.0) 06/07/24 05:16
Total Bilirubin 0.4 mg/dl (0.2-1.3) 06/07/24 05:16
AST 19 U/L (14-36) 06/07/24 05:16
ALT 15 U/L (0-35) 06/07/24 05:16
Alkaline Phosphatase 99 U/L (38-126) 06/07/24 05:16
Most recent labs reviewed.
Micro Results:
06/07/24 12:36 Blood Culture - Pending
Blood/Venous
06/07/24 12:50 Blood Culture - Pending
Blood/Venous
06/07/24 12:00 Urine Culture - Pending
Urine
06/07/24 05:16 Influenza Types A & B (NELL) - Final
Nasal Swab Negative for Influenza A & B, NAAT
Negative results must be combined with clinical observations
and patient history.
Nucleic Acid Amplification test (NAAT)performed on the
[employer] platform.
06/07/24 05:16 Urine Culture - Pending
Urine
[2024-06-08] MEDS: LOVENOX 60 MG SC ×2 (11:07→19:38)
[2024-06-08] MEDS: VIBRAMYCIN 100 MG PO ×2 (11:08→19:39)
[2024-06-08 11:26] LABS: B.E. 0.4 mmol/L; HCO3 24.6 mmol/L (21-28); O2 Saturation % 99.4 % (94-98); PCO2 37 mmHg (32-35); PO2 118 mmHg (83-108); pH 7.43 (7.35-7.45)
--- NOTE | 2024-06-08 11:36 | CON.PUL ---
Consultation
Consultation Request
Date/Time Consultation Requested: 06/08/2024
Date/Time Consultation Performed: 06/08/2024
Requesting Provider: Thompson Urias
Performing Provider: Magnus Sheriff
Reason for Consultation: Hypoxia
Medical History
-
Chief Complaint: Cough/Shortness of breath
History of Present Illness:
Patient is a very pleasant 33-year-old female with known history of obstructive sleep apnea, gastroesophageal reflux disease and nephrolithiasis who presented to the emergency room with right flank pain. She had visited emergency room about a week
ago for similar complaints and was noted to have 5 mm right UPJ stone with minimal right hydronephrosis she had been on Flomax and was compliant with the medication. In view of worsening symptoms she presented back to the emergency room and was
noted to have fever as well as vomiting. Patient had repeat CT abdomen which showed 5 mm stone which was located approximately 2 cm inferior to the right UP junction. Patient subsequently was evaluated by urology and had a cystoscopy with stent
placement. Patient was started on antibiotics and infectious disease service has been on case.
Post surgery, patient has been reporting some cough, nonproductive and was noted to have hypoxia requiring supplemental oxygen which is changed from her baseline. Pulmonary consultation was requested for further recommendations.
Past Medical History: Reports Other (Morbid obesity due to excess calories, GERD)
Past Surgical History: Reports Other (N/A)
Social History
Tobacco: Non-smoker
Alcohol: None
Drug: None
Family History
Family History: Not pertinent
Allergies / Home Medications
Allergies reflects when Allergies were last updated in [facility].
Home Medications with original date entered in [facility]
Allergies / Home Medications
Allergies
Allergy/AdvReac Type Severity Reaction Status Date / Time
amoxicillin [Amoxicillin] Allergy Rash Verified 06/07/24 04:41
Penicillins Allergy Unknown Verified 06/07/24 04:41
sulfamethoxazole Allergy Itching Verified 06/07/24 04:41
[From Bactrim]
trimethoprim [From Bactrim] Allergy Itching Verified 06/07/24 04:41
Home Medications
�Medication �Instructions �Recorded �Confirmed �Last Taken �Type
omeprazole magnesium 20 mg 20 mg PO DAILY 10/17/18 06/07/24 10/17/18 08:20 History
tablet,delayed release (Prilosec
OTC)
bupropion HCl 150 mg 24 hr tablet, 150 mg PO DAILY 06/01/24 06/07/24 06/06/24 History
extended release
cetirizine 10 mg tablet (Zyrtec) 10 mg PO DAILY 06/01/24 06/07/24 Unknown History
cholecalciferol (vitamin D3) 25 25 mcg PO DAILY 06/01/24 06/07/24 Unknown History
mcg (1,000 unit) tablet (Vitamin
D3)
escitalopram oxalate 20 mg tablet 20 mg PO DAILY 06/01/24 06/07/24 06/06/24 History
cyanocobalamin (vitamin B-12) 1,000 mcg PO DAILY 06/07/24 06/07/24 Unknown History
1,000 mcg tablet
ibuprofen 200 mg tablet (Advil) 400 mg PO Q6HPRN PRN mild pain 06/07/24 06/07/24 06/06/24 History
ketorolac 10 mg tablet 10 mg PO Q6HPRN PRN mild pain 06/07/24 06/07/24 Unknown History
ondansetron 4 mg disintegrating 4 mg PO Q6HPRN PRN nausea 06/07/24 06/07/24 Unknown History
tablet
oxycodone-acetaminophen 5 mg-325 1 tab PO Q6HPRN PRN severe pain 06/07/24 06/07/24 Unknown History
mg tablet (Percocet)
semaglutide 0.25 mg or 0.5 mg (2 0.5 mg SC SA 06/07/24 06/07/24 Unknown History
mg/1.5 mL) subcutaneous pen
injector (Ozempic)
tamsulosin 0.4 mg capsule (Flomax) 0.4 mg PO DAILY 06/07/24 06/07/24 06/04/24 History
Review of Systems
-
Hematologic/Lymphatic: Other (All 14 systems reviewed and negative except as stated above in the history of present illness.)
Vitals / Labs / Diagnostic Testing
Vital Signs
Temp Pulse Resp BP Pulse Ox
98.7 F 93 47 148/88 100
06/08/24 07:05 06/08/24 11:00 06/08/24 11:00 06/08/24 10:04 06/08/24 11:00
Lab Data
06/08/24 06:01
06/08/24 07:23
Laboratory Results
06/08/24
11:19
pH 7.43
pCO2 37 H
pO2 118 H
HCO3 24.6
O2 Delivery Level
Microbiology
06/07/24 12:00 Urine Urine Culture - Preliminary
NO GROWTH
06/07/24 05:16 Urine Urine Culture - Final
06/07/24 05:16 Nasal Swab Influenza Types A & B (NELL) - Final
Negative for Influenza A & B, NAAT
Negative results must be combined with clinical observations
and patient history.
Nucleic Acid Amplification test (NAAT)performed on the
[employer] platform.
Diagnostic Testing:
Physical Exam
-
HEENT: Normocephalic
Cardiovascular: S1/S2 and Peripheral Edema (Trace bilateral pedal edema)
Respiratory: Rales (few inspiratory rales in posterior lung bases. Otherwise normal exam. ) and Non-Labored Respirations
GI: Soft and Non Distended
Neurology: Awake and Alert
Skin: Warm
General: Comfortable
Assessment
-
#1. Acute hypoxic respiratory failure. Related to multifocal opacities noted on chest x-ray. Differential diagnosis include volume overload, aspiration pneumonitis/Pneumonia with history of recent intubation and gastroesophageal reflux disease as
well as early ARDS changes related to sepsis. CT-PE negative for acute Pulmonary Embolism
-Continue O2 support, keep sats above 90 to 92%
-Resume CPAP at night
-Monitor closely in IMU
-If patient has rising oxygen requirement, will need transition to high flow and transfer to ICU
#2. Multifocal pulmonary infiltrates, Cardiogenic/Non cardiogenic Pulmonary edema. Aspiration also in differential diagnosis since symptoms started after surgery and patient has been on Ozempic with h/o GERD. In view of sepsis, noncardiogenic
pulmonary edema/ARDS can also give similar infiltrates. No bacteremia noted however. Blood gases reviewed, 7.43, 37, 118 on 5 L supplemental oxygen A-a Gap is wide at 120 assuming 40% FiO2 with 5 ltr O2 flow. Eosinophil count 100-200. No evidence
of pulmonary embolism.
-Agree with expanding antibiotic coverage with addition of doxycycline to ceftriaxone
-Check procalcitonin level as well as proBNP
-Check echocardiogram, evaluate for right ventricle function also. Lasix 40 mg IV stat, overall positive fluid balance with trace pedal edema on exam
-Continue supplemental O2 to keep saturation above 90 to 92%
-Continue Protonix with h/o GERD. Has been on Ozempic, ?Aspiration. Also vomiting on presentation
-Incentive Spirometry for minor atelectasis noted on CT in posterior lung bases
-f/u CT in 6-8 weeks considering nodular/masslike opacity in GRISELDA.
#3. UTI Sepsis with obstructed right ureteral stone. s/p cystoscopy with dislodgment of ureteral calculus and right ureteral stent insertion.
-No bacteremia noted, currently on ceftriaxone
-Await cultures. ID service on case
#4. H/o KENNETH with Obesity, BMI 79.8. Patient has not been on Home O2 at baseline, except when using CPAP.
-Resume CPAP, patient uses Auto-CPAP at home
#5. GERD. Symptoms well controlled
-Continue PPI
DVT prophylaxis with Lovenox
Patient will resume follow-up with Dr. Finley, outpatient pulmonary/sleep medicine. Reviewed office records.
Total time spent on this consultation/encounter _76___ minutes which includes review of history, physical exam, medications, laboratory data, personal review of imaging, extensive review of outpatient records, discussion with care team and
respiratory therapy.
Data:
CT-PE 05/2024. No PE noted. Patchy parenchymal opacity demonstrated throughout both lungs. Most likely pneumonia. Other possible considerations may include patchy pulmonary edema, pneumonia, or inflammatory process. Somewhat nodular/masslike in the
upper lobes, especially in the left upper lobe measuring up to 1.3 cm. Recommend follow-up.
[2024-06-08 12:33] LABS: NT-proBNP 641 pg/ml
[2024-06-08 12:44] LABS: Procalcitonin 0.48 ng/ml (0.0-0.25)
--- NOTE | 2024-06-08 14:17 | CARDSERVDEF ---
Echocardiogram with Definity completed after protocol screening completed. Allergies verified.
Patent IV site: Right arm median Basillic Antecubital 20 G PC
IV site flushed with 0.9% NaCl pre and post administration.
Diluted bolus method utilized to enhance visualization of ventricular owens.
Total volume given: _3___ mL
Patient tolerated all procedures well without complications.
[2024-06-08] MEDS: LASIX 40 MG IV (14:24)
--- NOTE | 2024-06-08 14:57 | PTCARENOTE ---
Patients heart rate increases to the 130s when transferring herself to the commode. patient also becomes short of breath with activity. Echo completed today, IV Lasix administered.
--- NOTE | 2024-06-08 17:44 | PTCARENOTE ---
Patient received IV Lasix 40mg this afternoon. Large amount of urine output (1500 approx) voided. Patient was sitting in chair washing up and blood pressure dropped to 85/62. Patient was asymptomatic, placed back in bed. Blood pressure is now 157/96
while resting in bed.
--- NOTE | 2024-06-08 21:20 | PTCARENOTE ---
received patient from previous RN. Patient AAOX3 and pleasant. NSR on monitor, heart rate goes into 140s when going from bed to commode. GALLARDO. 3L NC and will wear cpap overnight. patient voiding yellow urine. no complaints of pain. call ocasio in
reach.
[2024-06-09] VITALS (31 sets, daily range): BP systolic 99–159; BP diastolic 61–127; PULSE 77–78
[2024-06-09 04:00] LABS: Hematocrit 29.8 % (37.0-47.0); Hemoglobin 9.5 g/dL (12.0-16.0); Mean Corp Hgb Conc. 31.9 g/dL (33.0-37.0); Mean Corpuscular Hgb 24.7 pg (27.0-31.0); Mean Corpuscular Volume 77.4 fL (81.0-99.0); Mean Platelet Volume 9.7 fL (7.4-10.4); Platelet Count 206 10^3/uL (130-400); Red Blood Cell Count 3.85 10^6/uL (4.20-5.40); Red Cell Dist. Width 15.1 % (11.5-14.5); White Blood Cell Count 7.2 10^3/uL (4.8-10.8)
[2024-06-09 04:34] LABS: Blood Urea Nitrogen 13 mg/dl (7-17); Calcium 8.7 mg/dl (8.4-10.2); Carbon Dioxide 26 mmol/L (22-30); Chloride 105 mmol/L (98-107); Estimated Creatinine Clearance > 125 ml/min; Glucose 103 mg/dl (70-99); Potassium 3.5 mmol/L (3.5-5.1); Sodium 140 mmol/L (135-145); eGFR > 60.00
--- NOTE | 2024-06-09 08:25 | W.PN.HOSP.TC ---
Today's Communication/Plan
-
see plan
Assessment / Plan
Assessment / Plan
Gen: NAD, AAOx3.
Eyes: EOMI, PERRLA, no scleral icterus.
Neck: supple.
CV: RRR, reg rhythm, +S1/S2, no m/r/g.
Resp: remains CTAB (noting distant breath sounds due to body habitus), no rales, wheezes, or rhonchi.
Skin: No rashes.
Neuro: CN 2-12 intact, non-focal.
Psych: Normal mood and affect.
06/07/24 12:36 Blood/Venous Blood Culture - Preliminary
No Growth in 24 hours- Final report to follow
06/07/24 12:50 Blood/Venous Blood Culture - Preliminary
No Growth in 24 hours- Final report to follow
06/07/24 12:00 Urine Urine Culture - Preliminary
NO GROWTH
06/07/24 05:16 Urine Urine Culture - Final
06/07/24 05:16 Nasal Swab Influenza Types A & B (NELL) - Final
Negative for Influenza A & B, NAAT
Negative results must be combined with clinical observations
and patient history.
Nucleic Acid Amplification test (NAAT)performed on the
[employer] NOW platform.
CT A/P 06/07/24:
1. 5 mm stone within the proximal right ureter, located approximately 2 cm inferior to the right ureteropelvic junction. This stone has migrated approximately 1 cm distally compared to prior CT dated 06/01/2024. Mild right hydronephrosis is not
significantly changed compared to prior study.
2. No additional stones are appreciated.
Echo: Technically difficult study - Definity used.
1. Left ventricle: Normal size and function with an estimated ejection
fraction 55-60%. No regional wall motion maladies are noted. Definity
contrast was utilized to improve endocardial visualization
2. Right ventricle: Normal
3. Atria: Normal
4. Mitral valve: Normal
5. Aortic valve: Trileaflet. No aortic stenosis or aortic insufficiency
6. Tricuspid valve: No tricuspid regurgitation
7. No prior studies for comparison
CTA chest: Extensive respiratory motion degradation. Limited. No filling defect to indicate pulmonary embolism with confidence to the proximal segmental vessels. Nondiagnostic beyond the proximal segmental vessel level. Pulmonary artery branching
order level of the most proximal pulmonary embolism: N/A. Minimal distention of the pulmonary trunk. Trace pleural effusions, right greater than left. Patchy parenchymal opacity demonstrated throughout both lungs. Most likely pneumonia. Other
possible considerations may include patchy pulmonary edema, pneumonia, or inflammatory process. Somewhat nodular/masslike in the upper lobes, especially in the left upper lobe measuring up to 1.3 cm. Recommend follow-up after conservative therapy.
Sepsis and mild right hydronephrosis due to 5mm right ureterolithiasis:
-Sepsis criteria of leukocytosis, tachycardia, and fever of 103 F at home at time of admission. Note urinalysis was contaminated with greater than 30 squamous cells.
-given Gentamicin and Rocephin in the ER
-cont Rocephin 2g IV Q24H due to weight as per ID
-s/p OF 06/07/24 cystoscopy,dislodgement of right ureteral stone, ureteral stenting. Operative findings of 5 mm, proximal ureteral stone; upon dislodgement, purulent urine propulsed from ureter via and along stent
-BCxs/UCx NGTD
Acute hypoxemic respiratory failure:
-Patient was 81% RA 06/08/24AM and was requiring 5L NC O2
-obesity related KENNETH/OHS as well as deconditioning is playing a role
-Echo unremarkable
-CTA chest limited but without PE centrally, patchy parenchymal opacity demonstrated throughout both lungs, most likely PNA
-pulm following. Discussed with pulmonary on 06/08/24. It is possible the patient aspirated during intubation.
-currently on Rocephin/Doxy
-received lasix 40mg IV x 1 on 06/08/24
-now weaned to 3L NC O2
Other problems:
Morbid obesity due to excess calories: Encourage weight loss, affects all aspects of care.
GERD: cont PPI
Patient's mother updated over speaker phone.
FULL/Lovenox
Total time spent on today's encounter was 51 minutes which included time spent in counseling the patient/family regarding diagnosis and treatment plan as listed above, goals of care, and symptom management. Case was discussed with nursing staff,
specialists, and care coordinators/case management. All labs and imaging personally reviewed by me. Remainder the time spent in detailed review of previous records, lab data, imaging, and other medical provider documentation.
Anticipated Discharge: Within 24 hours
Subjective/Interval History
-
Date of Service: June 09, 2024
Denies chest pain or shortness of breath.
Objective Data
-
Labs:
Laboratory Results
06/09/24
03:30
WBC 7.2
Hgb 9.5 L
Hct 29.8 L
Plt Count 206
Sodium 140
Potassium 3.5
Chloride 105
Carbon Dioxide 26
BUN 13
Creatinine 0.7
Glucose 103 H
Calcium 8.7
Vital Signs:
Vital Signs
Temp Pulse Resp BP Pulse Ox
98.0 F 81 24 113/73 94
06/09/24 07:35 06/09/24 05:30 06/09/24 05:30 06/09/24 05:30 06/09/24 08:09
I&O
06/08/24 06/09/24 06/10/24
06:59 06:59 06:59
Intake Total 900 / 900 560 / 560
Output Total 2950 / 2950
Balance 900 / 900 -2390 / -2390
--- NOTE | 2024-06-09 08:43 | PTCARENOTE ---
Patient received from casino shift manager. Patient resting comfortably in bed. AAO, VSS. No events noted overnight. No complaints of pain at this time. Patient wore CPAP overnight, to be placed on N/C. Will continue to wean O2 as tolerated. Usually
desats when ambulating. IVF has been discontinued. No testing scheduled at this time. Call ocasio in reach.
[2024-06-09] MEDS: LEXAPRO 20 MG PO (09:16)
[2024-06-09] MEDS: PROTONIX IV 40 MG IV (09:16)
[2024-06-09] MEDS: VIBRAMYCIN 100 MG PO ×2 (09:16→20:18)
[2024-06-09] MEDS: FLOMAX 0.4 MG PO (09:16)
[2024-06-09] MEDS: ZYRTEC 10 MG PO (09:16)
[2024-06-09] MEDS: WELLBUTRIN XL (24 hour extended release) 150 MG PO (09:16)
[2024-06-09] MEDS: LOVENOX 60 MG SC ×2 (09:16→20:18)
[2024-06-09] MEDS: ROCEPHIN 2000 MG IV ×2 (09:17→20:18)
[2024-06-09] MEDS: STERILE WATER FOR INJECTION 20 ML IV ×2 (09:17→20:19)
[2024-06-09] MEDS: NSS (PRESERVATIVE FREE) 10 ML IV (09:17)
[2024-06-09] MEDS: LASIX 20 MG IV (10:54)
--- NOTE | 2024-06-09 11:03 | W.PN.PUL3 ---
Today's Communication / Plan
-
-Continue to wean oxygen down as tolerated
-Lasix 20 mg IV x 1
Assessment
-
Patient is a very pleasant 33-year-old female with known history of obstructive sleep apnea, gastroesophageal reflux disease and nephrolithiasis who presented to the emergency room with right flank pain. She had visited emergency room about a week
ago for similar complaints and was noted to have 5 mm right UPJ stone with minimal right hydronephrosis she had been on Flomax and was compliant with the medication. In view of worsening symptoms she presented back to the emergency room and was
noted to have fever as well as vomiting. Patient had repeat CT abdomen which showed 5 mm stone which was located approximately 2 cm inferior to the right UP junction. Patient subsequently was evaluated by urology and had a cystoscopy with stent
placement. Patient was started on antibiotics and infectious disease service has been on case.
Post surgery, patient has been reporting some cough, nonproductive and was noted to have hypoxia requiring supplemental oxygen which is changed from her baseline. Pulmonary consultation was requested for further recommendations.
#1. Acute hypoxic respiratory failure. Related to multifocal opacities noted on chest x-ray. Differential diagnosis include volume overload, aspiration pneumonitis/Pneumonia with history of recent intubation and gastroesophageal reflux disease as
well as early ARDS changes related to sepsis. CT-PE negative for acute Pulmonary Embolism.
-Continue O2 support, keep sats above 90 to 92%. Clinically improving, down to 3 L supplemental oxygen and saturating 98%
-Continue CPAP at night
-Monitor closely in IMU
#2. Multifocal pulmonary infiltrates, Cardiogenic/Non cardiogenic Pulmonary edema. Aspiration also in differential diagnosis since symptoms started after surgery and patient has been on Ozempic with h/o GERD. In view of sepsis, noncardiogenic
pulmonary edema/ARDS can also give similar infiltrates. No bacteremia noted however. Blood gases reviewed, 7.43, 37, 118 on 5 L supplemental oxygen A-a Gap is wide at 120 assuming 40% FiO2 with 5 ltr O2 flow. Eosinophil count 100-200. No evidence
of pulmonary embolism.
-Agree with expanding antibiotic coverage with addition of doxycycline to ceftriaxone
-Patient responded well to Lasix on 06/08 with -2 L and improving clinical symptoms. Will give another Lasix 20 mg IV today, suspect volume overload also was contributing to her symptoms
-Continue supplemental O2 to keep saturation above 90 to 92%, down to 3 L now
-Continue Protonix with h/o GERD. Has been on Ozempic, ?Aspiration. Also vomiting on presentation
-Incentive Spirometry for minor atelectasis noted on CT in posterior lung bases
-f/u CT in 6-8 weeks considering nodular/masslike opacity in GRISELDA.
#3. UTI Sepsis with obstructed right ureteral stone. s/p cystoscopy with dislodgment of ureteral calculus and right ureteral stent insertion.
-No bacteremia noted, currently on ceftriaxone
-Await cultures. ID service on case
#4. H/o KENNETH with Obesity, BMI 79.8. Patient has not been on Home O2 at baseline, except when using CPAP.
-Resume CPAP, patient uses Auto-CPAP at home
#5. GERD. Symptoms well controlled
-Continue PPI
DVT prophylaxis with Lovenox
Patient will resume follow-up with Dr. Filney, outpatient pulmonary/sleep medicine. Reviewed office records.
Total time spent on this consultation/encounter _43___ minutes which includes review of history, physical exam, medications, laboratory data, personal review of imaging, extensive review of outpatient records, discussion with care team and
respiratory therapy.
Data:
CT-PE 05/2024. No PE noted. Patchy parenchymal opacity demonstrated throughout both lungs. Most likely pneumonia. Other possible considerations may include patchy pulmonary edema, pneumonia, or inflammatory process. Somewhat nodular/masslike in the
upper lobes, especially in the left upper lobe measuring up to 1.3 cm. Recommend follow-up.
Subjective Data
-
Date of Service:
Date of Service: June 09, 2024
Subjective:
Patient reports improving cough, improving dyspnea. Diuresed well overnight.
Review of Systems
Genitourinary: Other (All 14 systems reviewed and negative except as stated above in the history of present illness.)
Objective Data
Data Reviewed
Vital Signs / I&O / Oxygen:
Vital Signs
Temp Pulse Resp BP Pulse Ox
98.0 F 94 24 144/97 94
06/09/24 07:35 06/09/24 10:54 06/09/24 05:30 06/09/24 10:54 06/09/24 08:09
Intake and Output
06/08/24 06/09/24 06/10/24
06:59 06:59 06:59
Intake Total 900 / 900 560 / 560
Output Total 2950 / 2950 200 / 200
Balance 900 / 900 -2390 / -2390 -200 / -200
SaO2 94
Nasal Cannula flow liters per 3
minute
Physical Exam
General: Comfortable
HEENT: Normocephalic
Cardiovascular: S1-S2
Respiratory: Clear and Non-Labored Respirations
GI: Non Distended
Neurology: Awake and Alert
Skin: Warm
Labs/Micro/Reports
Lab Data
06/09/24 03:30
06/09/24 03:30
Laboratory Results
06/08/24
11:19
pH 7.43
pCO2 37 H
pO2 118 H
HCO3 24.6
O2 Delivery Level
Microbiology
06/07/24 12:00 Urine Urine Culture - Final
NO GROWTH
06/07/24 12:36 Blood/Venous Blood Culture - Preliminary
No Growth in 24 hours- Final report to follow
06/07/24 12:50 Blood/Venous Blood Culture - Preliminary
No Growth in 24 hours- Final report to follow
06/07/24 05:16 Urine Urine Culture - Final
06/07/24 05:16 Nasal Swab Influenza Types A & B (NELL) - Final
Negative for Influenza A & B, NAAT
Negative results must be combined with clinical observations
and patient history.
Nucleic Acid Amplification test (NAAT)performed on the
[employer] NOW platform.
--- NOTE | 2024-06-09 12:18 | W.PN.ID1 ---
Date of Service
Date of Service: June 09, 2024
Today's Communication
- start cefdinir stop ceftriaxone
- can continue doxycycline
- both can be continued through 06/13 which is an adequate course
Assessment / Plan
Obstructive Pyelonephritis
Suspected pulmonary edema, less likely pneumonia
Class III obesity
Reported allergy to penicillin, amoxicillin, bactrim
- blood cultures x2 no growth to date
- urine culture after relief of obstruction finalized negative
- unable to produce a sputum for culture
- start cefdinir stop ceftriaxone
- can continue doxycycline
- both can be continued through 06/13 which is an adequate course
- QTc 440
- follow clinically
- follow up with PCP
Reviewed culture results (note pertinent negative culture) and adjusted antibiotics to oral formulations.
Chief Complaint
-: UTI
Subjective / Review of Systems
afebrile
bp stable
now on 3L NC
Vital Signs / Physical Exam
Vital Signs
Vital Signs
Temp Pulse Resp BP Pulse Ox
98.2 F 94 24 144/97 92
06/09/24 11:39 06/09/24 10:54 06/09/24 05:30 06/09/24 10:54 06/09/24 11:25
Physical Exam
Constitutional: No Acute Distress and Obese
Cardiovascular: Regular Rate and S1/S2; Negative Murmur or Rub
Pulmonary: Clear and Symmetric; Negative Wheezes or Rales
Gastrointestinal: Soft, Non Tender, Non Distended and Normal Bowel Sounds
Skin: Warm and Dry; Negative Rash or Jaundice
Objective Data
Lab Data
Lab Results
06/09/24 03:30
06/09/24 03:30
Estimated Creat Clear > 125 ml/min 06/09/24 03:30
Lactic Acid 1.6 mmol/L (0.7-2.0) 06/07/24 05:16
Total Bilirubin 0.4 mg/dl (0.2-1.3) 06/07/24 05:16
AST 19 U/L (14-36) 06/07/24 05:16
ALT 15 U/L (0-35) 06/07/24 05:16
Alkaline Phosphatase 99 U/L (38-126) 06/07/24 05:16
Most recent labs reviewed.
Micro Results:
06/07/24 12:00 Urine Culture - Final
Urine NO GROWTH
06/07/24 12:36 Blood Culture - Preliminary
Blood/Venous No Growth in 24 hours- Final report to follow
06/07/24 12:50 Blood Culture - Preliminary
Blood/Venous No Growth in 24 hours- Final report to follow
06/08/24 11:10 MRSA Screen - Pending
Nose
06/07/24 05:16 Urine Culture - Final
Urine
06/07/24 05:16 Influenza Types A & B (NELL) - Final
Nasal Swab Negative for Influenza A & B, NAAT
Negative results must be combined with clinical observations
and patient history.
Nucleic Acid Amplification test (NAAT)performed on the
[employer] platform.
--- NOTE | 2024-06-09 16:07 | CM ---
Addendum entered by Celeste Pickens RN 06/09/24 16:11:
Plan watch for any home O2 needs.
Plan home.
Original Note:
Patient with Hx obesity with Dx Sepsis, right ureterolithiasis, Acute hypoxemic respiratory failure. O2 3L. Receiving IV/PO Abx.
Met with patient who resides with her father in a 2 story house w 2 TYRA.
The patient was independent in ADLs and ambulation.
The patient says she is active, works and drives.
DME - CPAP
No prior VN
PCP - Dr Marroquin
Pharmacy - [facility]
The patient states she will be discharging to her mother Josephine's 2nd floor apartment with 1 flight stairs to unit.
No CM d/c needs identified.
Plan home.
[2024-06-10] VITALS (8 sets, daily range): BP systolic 116–133; BP diastolic 62–86
--- NOTE | 2024-06-10 00:23 | PTCARENOTE ---
received patient from previous shift. patient AAOx3, VSS. NSR on monitor, will go tachy into 140s with ambulating. on RA sating at 96%. Friends at bedside with patient. Cpap overnight. call ocasio in reach.
[2024-06-10 04:12] LABS: Hematocrit 31.8 % (37.0-47.0); Hemoglobin 10.4 g/dL (12.0-16.0); Mean Corp Hgb Conc. 32.7 g/dL (33.0-37.0); Mean Corpuscular Hgb 24.6 pg (27.0-31.0); Mean Corpuscular Volume 75.2 fL (81.0-99.0); Mean Platelet Volume 9.7 fL (7.4-10.4); Platelet Count 210 10^3/uL (130-400); Red Blood Cell Count 4.23 10^6/uL (4.20-5.40); Red Cell Dist. Width 14.9 % (11.5-14.5); White Blood Cell Count 6.5 10^3/uL (4.8-10.8)
[2024-06-10 04:38] LABS: Blood Urea Nitrogen 15 mg/dl (7-17); Carbon Dioxide 23 mmol/L (22-30); Chloride 106 mmol/L (98-107); Estimated Creatinine Clearance > 125 ml/min; Glucose 101 mg/dl (70-99); Potassium 3.6 mmol/L (3.5-5.1); Sodium 141 mmol/L (135-145); eGFR > 60.00
[2024-06-10] MEDS: LOVENOX 60 MG SC (08:10)
[2024-06-10] MEDS: ROCEPHIN 2000 MG IV (08:11)
[2024-06-10] MEDS: VIBRAMYCIN 100 MG PO (08:11)
[2024-06-10] MEDS: STERILE WATER FOR INJECTION 20 ML IV (08:11)
[2024-06-10] MEDS: ZYRTEC 10 MG PO (08:11)
[2024-06-10] MEDS: LEXAPRO 20 MG PO (08:12)
[2024-06-10] MEDS: PROTONIX 40 MG PO (08:12)
[2024-06-10] MEDS: FLOMAX 0.4 MG PO (08:12)
[2024-06-10] MEDS: WELLBUTRIN XL (24 hour extended release) 150 MG PO (08:12)
--- NOTE | 2024-06-10 09:10 | PTCARENOTE ---
Patient received from hourly shift manager. Patient resting comfortably in bed. AAO, VSS. No events noted overnight. No complaints of pain at this time. Patient wore CPAP again overnight and taken off this AM to Room Air. No testing scheduled at this
time. Possible discharge today? Call ocasio in reach.
[2024-06-10 10:46] LABS: Iron 46 ug/dl (37-170)
[2024-06-10 10:55] LABS: Percent Saturation 13 % (20-50); Total Iron Binding Capacity 341 ug/dl (265-497)
--- NOTE | 2024-06-10 10:58 | W.PN.HOSP.TC ---
Addendum entered and electronically signed by Janusz Dotson MD 06/10/24 14:19:
More than 30 minutes spent in discharge including
Final examination of the patient
Summarizing hospital stay
Instructions for continuing care to all relevant caregivers
Preparation of discharge records, prescriptions, and referral forms
Total time spent (in minutes): 37 min
Addendum entered and electronically signed by Janusz Dotson MD 06/10/24 14:18:
Dictation- [id number]
Original Note:
Today's Communication/Plan
-
Amb SPO2 prior to discharge
Assessment / Plan
Assessment / Plan
06/07/24 12:36 Blood/Venous Blood Culture - Preliminary
No Growth in 24 hours- Final report to follow
06/07/24 12:50 Blood/Venous Blood Culture - Preliminary
No Growth in 24 hours- Final report to follow
06/07/24 12:00 Urine Urine Culture - Preliminary
NO GROWTH
06/07/24 05:16 Urine Urine Culture - Final
06/07/24 05:16 Nasal Swab Influenza Types A & B (NELL) - Final
Negative for Influenza A & B, NAAT
Negative results must be combined with clinical observations
and patient history.
Nucleic Acid Amplification test (NAAT)performed on the
[employer] ID NOW platform.
34-year-old with with sepsis
Feels well and wishing to go home.
AAO3
Conversant
No SOB
CVS: S1-S2 normal
Chest: CTA B/L
Abdomen: Soft, NT / Bowel sounds present
Extremities: No edema
STOCK SHIPPER: Non focal exam
CT A/P 06/07/24:
1. 5 mm stone within the proximal right ureter, located approximately 2 cm inferior to the right ureteropelvic junction. This stone has migrated approximately 1 cm distally compared to prior CT dated 06/01/2024. Mild right hydronephrosis is not
significantly changed compared to prior study.
2. No additional stones are appreciated.
Echo technically difficult study. LV size and function. EF 55 to 60%. RV normal. Mitral valve normal. Tricuspid valve-no TR
CTA chest-extensive respiratory motion no filling defect detail in duplicate PE nondiagnostic beyond proximal segmental vessel level. Pulmonary artery branching order level of the most proximal pulmonary embolism N/A. Minimal distention of the
pulmonary trunk. Trace pleural effusion right greater than left. Patchy parenchymal opacity throughout both lungs. Most likely pneumonia. Other considerations patchy pulmonary edema, pneumonia, inflammatory process. Somewhat nodular/masslike in
the upper lobes left upper lobe 1.3 cm
Chest x-ray reviewed by me-06/10/2024-widespread bilateral pulm predominantly interstitial opacification improved may represent resolving interstitial edema
# Sepsis with mild right hydronephrosis secondary to 5 mm right ureteral lithiasis.
Gentamicin and ceftriaxone started in the ER
Continue ceftriaxone 2 g every 24 hours-changed to cefdinir
Status post cystoscopy dislodgment of the right ureteral stone, ureteral stenting on 06/07/2024. Operative finding-5 mm proximal ureteral stone upon dislodgment purulent urine Propulsid from ureter via and along stent.
Blood cultures and urine cultures negative
Infectious disease following
Antibiotics through 06/13/2024
# Acute hypoxic respiratory failure
Patient was 81% on room air on 4 10:25 AM requiring 5 L of nasal cannula oxygen
Obesity related KENNETH/OHS as well as pneumonia
Continue antibiotics for aspiration pneumonia/pneumonitis versus interstitial estlg-hpcagfpufacarf-ekuvulkt ceftriaxone and doxycycline
Echo unremarkable
CT chest limited study but no central PE
Received 1 dose of Lasix on
Currently Off O2 since last night
# Anemia-Mild NOEMY- Op Work up. Add PO iron.
# Morbid obesity with a BMI of 79-on Ozempic as outpatient
# GERD continue PPI
# Sleep apnea-continue CPAP
# Mental health disorder-continue bupropion 150 mg daily, Lexapro 20 mg daily
# DVT prophylaxis-Lovenox
# Full code
D/W ID- OK for discharge
D/W Mom from pt's phone in the room
D/W RN
D/W Pulm
Amb SPO2 prior to discharge
Anticipated Discharge: Today
Subjective/Interval History
-
Date of Service: June 10, 2024
Objective Data
-
Labs:
Laboratory Results
06/10/24
03:59
WBC 6.5
Hgb 10.4 L
Hct 31.8 L
Plt Count 210
Sodium 141
Potassium 3.6
Chloride 106
Carbon Dioxide 23
BUN 15
Creatinine 0.6
Glucose 101 H
Calcium 9.0
Vital Signs:
Vital Signs
Temp Pulse Resp BP Pulse Ox
98 F 73 25 133/86 95
06/10/24 07:05 06/10/24 05:30 06/10/24 05:30 06/10/24 05:30 06/10/24 08:35
I&O
06/09/24 06/10/24 06/11/24
06:59 06:59 06:59
Intake Total 560 / 560 480 / 480
Output Total 2950 / 2950 500 / 500
Balance -2390 / -2390 -20 / -20
--- NOTE | 2024-06-10 11:34 | W.PN.UPDATE ---
Update Note
Progress Note Update
Patient is in need of oxygen on exertion due to pulse oximetry of 95% on room air at rest; 88% on room air with exertion.
Patient was placed on 1L O2 via nasal cannula with saturation of 95%. Oxygen will help to improve hypoxemia.
Patient is mobile within the home. Antibiotics and neb therapy have been discussed and is ineffective in treating hypoxemia
Oxygen will improve the patient's symptoms.
--- NOTE | 2024-06-10 11:39 | CM ---
Addendum entered by Rossana Epperson 06/10/24 16:14:
[employer] delivered tank to patient and delivered oxygen equipment to the home. Confirmed by mom
PLAN: Discharge to home
mom to transport
Original Note:
tt from Hospitalist
patient will need home 02 for discharge today to home
Called Chelly from [facility] - will fax clinicals, script to [phone]
PLAN: home with 02 once set up
--- NOTE | 2024-06-10 12:36 | W.PN.PUL3 ---
Today's Communication / Plan
-
Not on steroids, stable on RA
Ambulatory testing showing brief need for 1L O2, home set up per team
Transition abx to PO course
Encouraged IS, PT
Outpatient pulmonary F U recommended, left in chart
Discharge planning per team
Happy birthday!
Assessment
-
Patient is a very pleasant 33-year-old female with known history of obstructive sleep apnea, gastroesophageal reflux disease and nephrolithiasis who presented to the emergency room with right flank pain. She had visited emergency room about a week
ago for similar complaints and was noted to have 5 mm right UPJ stone with minimal right hydronephrosis she had been on Flomax and was compliant with the medication. In view of worsening symptoms she presented back to the emergency room and was
noted to have fever as well as vomiting. Patient had repeat CT abdomen which showed 5 mm stone which was located approximately 2 cm inferior to the right UP junction. Patient subsequently was evaluated by urology and had a cystoscopy with stent
placement. Patient was started on antibiotics and infectious disease service has been on case.
Post surgery, patient has been reporting some cough, nonproductive and was noted to have hypoxia requiring supplemental oxygen which is changed from her baseline. Pulmonary consultation was requested for further recommendations.
Plan
#1. Acute hypoxic respiratory failure. Related to multifocal opacities noted on chest x-ray. Differential diagnosis include volume overload, aspiration pneumonitis/Pneumonia with history of recent intubation and gastroesophageal reflux disease as
well as early ARDS changes related to sepsis. CT-PE negative for acute Pulmonary Embolism.
-Continue O2 support, keep sats above 90 to 92%. Clinically improving, down to 3 L supplemental oxygen and saturating 98%
-Continue CPAP at night
-Monitor closely in IMU
Home O2 eval showing desat to 86% briefly with recovery with stopping, to be set up on home O2
We can eval as OP on ongoing need, reviewed with patient
#2. Multifocal pulmonary infiltrates, Cardiogenic/Non cardiogenic Pulmonary edema. Aspiration also in differential diagnosis since symptoms started after surgery and patient has been on Ozempic with h/o GERD. In view of sepsis, noncardiogenic
pulmonary edema/ARDS can also give similar infiltrates. No bacteremia noted however. Blood gases reviewed, 7.43, 37, 118 on 5 L supplemental oxygen A-a Gap is wide at 120 assuming 40% FiO2 with 5 ltr O2 flow. Eosinophil count 100-200. No evidence
of pulmonary embolism.
-Agree with expanding antibiotic coverage with addition of doxycycline to ceftriaxone
-Patient responded well to Lasix on 06/08 with -2 L and improving clinical symptoms. Will give another Lasix 20 mg IV today, suspect volume overload also was contributing to her symptoms
-Continue supplemental O2 to keep saturation above 90 to 92%, down to 3 L now
-Continue Protonix with h/o GERD. Has been on Ozempic, ?Aspiration. Also vomiting on presentation
-Incentive Spirometry for minor atelectasis noted on CT in posterior lung bases
-f/u CT in 6-8 weeks considering nodular/masslike opacity in GRISELDA.
#3. UTI Sepsis with obstructed right ureteral stone. s/p cystoscopy with dislodgment of ureteral calculus and right ureteral stent insertion.
-No bacteremia noted, currently on ceftriaxone
-Await cultures. ID service on case
#4. H/o KENNETH with Obesity, BMI 79.8. Patient has not been on Home O2 at baseline, except when using CPAP.
-Resume CPAP, patient uses Auto-CPAP at home
#5. GERD. Symptoms well controlled
-Continue PPI
DVT prophylaxis with Lovenox
Patient will resume follow-up with Dr. Finley, outpatient pulmonary/sleep medicine. Reviewed office records.
Data:
CT-PE 05/2024. No PE noted. Patchy parenchymal opacity demonstrated throughout both lungs. Most likely pneumonia. Other possible considerations may include patchy pulmonary edema, pneumonia, or inflammatory process. Somewhat nodular/masslike in the
upper lobes, especially in the left upper lobe measuring up to 1.3 cm. Recommend follow-up.
Total time spent on this consultation/encounter _34__ minutes which includes review of history, physical exam, medications, laboratory data, personal review of imaging, extensive review of outpatient records, discussion with care team and
respiratory therapy.
Subjective Data
-
Date of Service:
Date of Service: June 10, 2024
Chief Complaint: Pulmonary Follow Up
Subjective:
Remains stable on RA, desat with walking
No new complaints
Ready to go home
Objective Data
Data Reviewed
Vital Signs / I&O / Oxygen:
Vital Signs
Temp Pulse Resp BP Pulse Ox
98 F 73 25 133/86 95
06/10/24 07:05 06/10/24 05:30 06/10/24 05:30 06/10/24 05:30 06/10/24 08:35
Intake and Output
06/09/24 06/10/24 06/11/24
06:59 06:59 06:59
Intake Total 560 / 560 480 / 480
Output Total 2950 / 2950 500 / 500
Balance -2390 / -2390 -20 / -20
SaO2 95
Nasal Cannula flow liters per 3
minute
Physical Exam
General: Comfortable and Other (NAD, morbidly obese)
HEENT: Normocephalic, Sinus Tenderness and Moist Mucous Membranes
Cardiovascular: S1-S2 and Regular Rhythm
Respiratory: Clear (overall decreased) and Non-Labored Respirations
GI: Soft, Non Distended and Non Tender
Neurology: Awake, Alert, Oriented and No Motor Deficits
Skin: Warm, Dry and Good Color
Labs/Micro/Reports
Lab Data
06/10/24 03:59
06/10/24 03:59
Microbiology
06/08/24 11:10 Nose MRSA Screen - Final
No Methicillin Resistant Staphylococcus aureus isolated.
06/07/24 12:36 Blood/Venous Blood Culture - Preliminary
No Growth in 48 hours- Final report to follow
06/07/24 12:50 Blood/Venous Blood Culture - Preliminary
No Growth in 48 hours- Final report to follow
06/07/24 12:00 Urine Urine Culture - Final
NO GROWTH
06/07/24 05:16 Urine Urine Culture - Final
[2024-06-10 13:46] LABS: Ferritin 46.4 ng/ml (6.24-137)
[2024-06-10 14:00] LABS: Vitamin B12 942 pg/ml (239-931)
--- NOTE | 2024-06-10 14:18 | W.DS.TRANS ---
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
-
Discharge Instructions:
Discharge Diagnosis/Procedures Sepsis and mild right hydronephrosis due to 5mm
right kidney stone
06/07/24 cystoscopy,dislodgement of right ureteral
stone, ureteral stenting
Aspiration pneumonitis
Hypoxia
Diet As tolerated
Activity As tolerated
Driving Restrictions As prior to admission
Instructions:
Stand-Alone Forms:
Changes to Home Medications: Yes
Discharge Medications:
DC Medications w/original date entered in [employer]
omeprazole magnesium 20 mg tablet,delayed release (Prilosec OTC) 20 mg PO DAILY Gastrointestinal Issue 10/17/18
bupropion HCl 150 mg 24 hr tablet, extended release 150 mg PO DAILY Mental Health/Anxiety 06/01/24
cetirizine 10 mg tablet (Zyrtec) 10 mg PO DAILY Allergies 06/01/24
cholecalciferol (vitamin D3) 25 mcg (1,000 unit) tablet (Vitamin D3) 25 mcg PO DAILY Supplement 06/01/24
escitalopram oxalate 20 mg tablet 20 mg PO DAILY Mental Health/Anxiety 06/01/24
cyanocobalamin (vitamin B-12) 1,000 mcg tablet 1,000 mcg PO DAILY Supplement 06/07/24
ondansetron 4 mg disintegrating tablet 4 mg PO Q6HPRN PRN nausea 06/07/24
oxycodone-acetaminophen 5 mg-325 mg tablet (Percocet) 1 tab PO Q6HPRN PRN severe pain 06/07/24
semaglutide 0.25 mg or 0.5 mg (2 mg/1.5 mL) subcutaneous pen injector (Ozempic) 0.5 mg SC SA WEIGHT LOSS 06/07/24
tamsulosin 0.4 mg capsule (Flomax) 0.4 mg PO DAILY Urinary Issue 06/07/24
cefdinir 300 mg capsule 300 mg PO BID Infection #7 caps 06/10/24
doxycycline hyclate 100 mg capsule 100 mg PO Q12 Infection #7 caps 06/10/24
ferrous gluconate 270 mg (27 mg iron) tablet 270 mg PO DAILY anemia #30 tabs 06/10/24
Home Medication Changes
new
cefdinir 300 mg capsule 300 mg PO BID Infection #7 caps 06/10/24
doxycycline hyclate 100 mg capsule 100 mg PO Q12 Infection #7 caps 06/10/24
ferrous gluconate 270 mg (27 mg iron) tablet 270 mg PO DAILY anemia #30 tabs 06/10/24
Pending Results: No
--- NOTE | 2024-06-10 18:32 | PTCARENOTE ---
Patient discharged home. Discharge instructions reviewed and all questions answered. Patient was escorted via wheelchair to [facility] where she left with her mother. Patient left with all known belongings.
== END 2024-06-10 16:58 | disposition home or self-care (01) | DRG 853 ==
LOC: IMU 11:38
PROVIDERS: Physician Assistant; ADMITTING PHYSICIAN Internal Medicine; ATTENDING PHYSICIAN Hospitalist; CONSULT PHYSICIAN Internal Medicine; CONSULT PHYSICIAN Student in an Organized Health Care Education/Training Program; EMERGENCY PHYSICIAN Student in an Organized Health Care Education/Training Program; OTHER PHYSICIAN Specialist
PROC: 0T768DZ Dilation of Right Ureter with Intraluminal Device, Via Natural or Artificial Opening Endoscopic (ICD-10-PCS; 2024-06-07)
PROC: 5A09357 Assistance with Respiratory Ventilation, Less than 24 Consecutive Hours, Continuous Positive Airway Pressure (ICD-10-PCS; 2024-06-08)
DX: A41.9 Sepsis, unspecified organism (principal); J18.9 Pneumonia, unspecified organism; J69.0 Pneumonitis due to inhalation of food and vomit; J80 Acute respiratory distress syndrome; N13.6 Pyonephrosis; Z68.45 Body mass index [BMI] 70 or greater, adult; J98.11 Atelectasis; K21.9 Gastro-esophageal reflux disease without esophagitis; I10 Essential (primary) hypertension; R25.1 Tremor, unspecified; G47.33 Obstructive sleep apnea (adult) (pediatric); D64.9 Anemia, unspecified; E66.813 Obesity, class 3; Z87.442 Personal history of urinary calculi; Z84.1 Family history of disorders of kidney and ureter; Z11.52 Encounter for screening for COVID-19; Z88.1 Allergy status to other antibiotic agents; Z88.0 Allergy status to penicillin; Z88.2 Allergy status to sulfonamides; Z79.85 Long-term (current) use of injectable non-insulin antidiabetic drugs
CPT/HCPCS: 36600; 71045; 71275; 74018; 74176; 76000; 80048; 80053; 81003; 81015; 82607; 82728; 82805; 83036; 83540; 83550; 83605; 83690; 83880; 84145; 84703; 85025; 85027; 87040; 87070; 87086; 87502; 87811; 93005; 93306; 94660; 96361; 96365; 96375; 99285; C2617; Q9957; Q9967

== ENCOUNTER 2024-06-23 06:08 | Day surgery (SDC) | payer BC, SELFPAY ==
[2024-06-23] VITALS (8 sets, daily range): BP systolic 103–150; BP diastolic 57–92; BMI 79.4
[2024-06-23] MEDS: NORMOSOL-R/PLASMALYTE-A 1000 IV (06:52)
[2024-06-23 07:24] LABS: Urine Albumin 3+ (Neg - Trace); Urine Bilirubin Negative (Negative); Urine Character Slightly Cloudy (Clear); Urine Glucose Negative (Negative); Urine Ketone Negative (Negative); Urine Leukocyte 2+ (Negative); Urine Nitrite Negative (Negative); Urine Occult Blood 4+ (Negative); Urine Specific Gravity 1.025 (<1.030); Urine Urobilinogen Negative (Neg - 1+)
[2024-06-23 08:30] LABS: Urine Bacteria Many (Negative); Urine Red Blood Cell >100 /HPF (0-2); Urine Squamous Cell >30 /LPF (Few)
[2024-06-23] MEDS: Pyridium 200 MG PO (08:31)
== END 2024-06-23 09:32 | disposition home or self-care (01) ==
LOC: SDS 06:08
PROVIDERS: ATTENDING PHYSICIAN Specialist
DX: N20.2 Calculus of kidney with calculus of ureter (principal); Z87.440 Personal history of urinary (tract) infections
CPT/HCPCS: 52356; 76000; 81003; 81015; 82365; 87086; C1894

== ENCOUNTER → 2024-07-07 09:25 | Outpatient (REF) | payer BC, SELFPAY | LOC: HWRAD 09:25 | PROVIDERS: ATTENDING PHYSICIAN Nurse Practitioner Adult Health; FAMILY PHYSICIAN Family Medicine | DX: R91.1 Solitary pulmonary nodule (principal); J69.0 Pneumonitis due to inhalation of food and vomit; R93.89 Abnormal findings on diagnostic imaging of other specified body structures | CPT/HCPCS: 71250 ==

== ENCOUNTER 2024-10-04 19:34 | Emergency (ER) | payer BC, SELFPAY ==
[2024-10-04 19:36] VITALS: BP 142/89
[2024-10-04 20:03] LABS: Hematocrit 33.1 % (37.0-47.0); Hemoglobin 10.8 g/dL (12.0-16.0); Mean Corp Hgb Conc. 32.6 g/dL (33.0-37.0); Mean Corpuscular Volume 76.3 fL (81.0-99.0); Nucleated Red Blood Cells % 0 %; Platelet Count 271 10^3/uL (130-400); Red Cell Dist. Width 15.9 % (11.5-14.5)
[2024-10-04 20:17] LABS: ALT (SGPT) 18 U/L (0-35); AST (SGOT) 25 U/L (14-36); Albumin 4.6 g/dl (3.5-5.0); Alkaline Phosphatase 110 U/L (38-126); Blood Urea Nitrogen 16 mg/dl (7-17); Calcium 9.8 mg/dl (8.4-10.2); Carbon Dioxide 23 mmol/L (22-30); Chloride 106 mmol/L (98-107); Glucose 119 mg/dl (70-99); Potassium 4.5 mmol/L (3.5-5.1); Sodium 141 mmol/L (135-145); Total Protein 7.8 g/dl (6.3-8.2); eGFR > 60.00
[2024-10-04 20:18] LABS: APTT 31.0 Sec (23.4-35.0)
[2024-10-04 20:28] LABS: Troponin I < 0.012 ng/ml
[2024-10-04 22:33] VITALS: BMI 74.2
[2024-10-04 22:34] VITALS: BP 149/73
[2024-10-04 23:00] VITALS: BP 134/66
--- NOTE | 2024-10-04 23:39 | ED.GENMED ---
History of Present Illness
<Raegan Mcmahon DO, Resident - Last Filed: 10/06/24 06:46>
General
Chief Complaint: Breathing Problem
Source: patient
Exam Limitations: none
Time Seen by Provider: 10/04/24 23:13
Nursing documentation reviewed up to this point in time: agreed with
History of Present Illness
History of Present Illness:
Patient is a 34-year-old female past medical history of obesity BMI 74, anxiety, anemia and GERD presenting with new onset shortness of breath and chest/upper abdominal discomfort. Patient was in her usual state of health until this evening, after
she ate dinner, she started to experience a band like chest and upper abdomen discomfort she describes as being under her breasts and wrapping around her back. Patient also noted shortness of breath with this discomfort. Patient also noted slight
lightheadedness at this time. Patient took her pulse ox at home and it was normal. Patient waited 15 minutes the pain did not pass so she came to the ED. In the waiting room she felt that the pain is resolved, but she still feels a slight upper
abdominal and back discomfort. Patient feels like she is unable to get a full breath. Of note patient has been on Ozempic since March. Patient has had 25 to 30 pound weight loss. Patiently recently switched to Wegovy. Last dose was last
Wednesday 0.25. Also of note patient had sinus infection in mid August with antibiotics, but cannot read the name of the antibiotic. Patient denies nausea and vomiting. Patient had normal bowel movement this evening. Patient denies all other ROS.
Past History
<Raegan Mcmahon DO, Resident - Last Filed: 10/06/24 06:46>
Past History
ED Past Medical History: GERD and Other (Kidney stones); Negative Asthma, HTN, Hypercholesterolemia or NIDDM
ED Past Surgical History: None
Social History
Tobacco: Non-smoker
Alcohol: None
Drug: None
Personal: Single
Living: with family
Employment: Employed
Family History
Family History: Other (Brother with history of kidney stones)
Review of Systems
<Raegan Mcmahon DO, Resident - Last Filed: 10/06/24 06:46>
Review of Systems
Allergies reviewed?: Yes
All Other Systems: ROS reviewed and negative except as documented in HPI and ROS
Constitutional: Reports weight loss (Recently lost 25 to 30 pounds on Ozempic over the last 5 months)
EENT: Reports no symptoms
Respiratory: Reports trouble breathing (Creased shortness of breath and trouble getting a full breath)
Cardiac: Reports other (Patient describing new chest pressure centrally and under breasts bilaterally)
ABD/GI: Reports abdominal pain (Upper abdominal pain)
: Reports no symptoms
Musculoskeletal: Reports no symptoms
Skin: Reports no symptoms
Neurological: Reports no symptoms
Endocrine: Reports no symptoms
Hematologic/Lymphatic: Reports no symptoms
Psychiatric: Reports no symptoms
Phy Exam
<Raegan Mcmahon DO, Resident - Last Filed: 10/06/24 06:46>
General Physical Exam
General Presentation: no apparent distress
General Skin: warm and dry
General Habitus: obese
General Mental: alert
Cardiovascular Exam
Cardiovascular Exam: regular rate/rhythm
Heart Sounds: normal
Pulmonary Exam
Pulmonary Exam: lungs clear and no respiratory distress
Gastrointestinal Exam
Gastrointestinal Exam: tender (Upper abdominal tenderness)
Neurological Exam
Neurological Exam: alert and oriented x3
Skin Exam
Skin Exam: normal color and warm/dry
Psychiatric Exam
Psychiatric Exam: normal mood/affect
Course
<Raegan Mcmahon DO, Resident - Last Filed: 10/06/24 06:46>
Orders/Labs/Results
Orders:
Orders
10/04/24 19:35
EKG [Electrocardiogram (*1)] Urgent
Reason for Study: Chest Pain
EKG- Treatment ONCE
10/04/24 19:41
CR Chest - 2 Views Urgent
Comment:
Reason For Exam: SOB
10/04/24 19:55
Complete Blood Count/With Diff Urgent
Comprehensive Metabolic Panel Urgent
D-Dimer Urgent
Comment: ADDED
Lipase Urgent
Comment: ADDED
PTT Urgent
Troponin I Urgent
10/05/24 00:07
Add On- LAB Stat
Tests Added?: lipase, DDimer
10/05/24 00:09
US Abdomen Complete/Upper Urgent
Comment:
Reason For Exam: upper abdominal pain
Abnormal Lab Results
10/04/24
19:55
Hgb 10.8 L g/dL
(12.0-16.0)
Hct 33.1 L %
(37.0-47.0)
MCV 76.3 L fL
(81.0-99.0)
MCH 24.9 L pg
(27.0-31.0)
MCHC 32.6 L g/dL
(33.0-37.0)
RDW 15.9 H %
(11.5-14.5)
Glucose 119 H mg/dl
(70-99)
10/04/24 19:55
10/04/24 19:55
Vital Signs
Initial and Last Documented VS:
Initial Vital Signs
Temp Pulse Resp BP Pulse Ox
97.4 F 82 20 142/89 99
10/04/24 19:36 10/04/24 19:36 10/04/24 19:36 10/04/24 19:36 10/04/24 19:36
Last Documented Vital Signs
Temp Pulse Resp BP Pulse Ox
97.4 F 70 32 131/68 97
10/04/24 19:36 10/05/24 02:45 10/05/24 02:45 10/05/24 02:00 10/05/24 02:45
<Nikunj Rosales, DO - Last Filed: 10/05/24 04:46>
Orders/Labs/Results
Orders:
Orders
10/04/24 19:35
EKG [Electrocardiogram (*1)] Urgent
Reason for Study: Chest Pain
EKG- Treatment ONCE
10/04/24 19:41
CR Chest - 2 Views Urgent
Comment:
Reason For Exam: SOB
10/04/24 19:55
Complete Blood Count/With Diff Urgent
Comprehensive Metabolic Panel Urgent
D-Dimer Urgent
Comment: ADDED
Lipase Urgent
Comment: ADDED
PTT Urgent
Troponin I Urgent
10/05/24 00:07
Add On- LAB Stat
Tests Added?: lipase, DDimer
10/05/24 00:09
US Abdomen Complete/Upper Urgent
Comment:
Reason For Exam: upper abdominal pain
Abnormal Lab Results
10/04/24
19:55
Hgb 10.8 L g/dL
(12.0-16.0)
Hct 33.1 L %
(37.0-47.0)
MCV 76.3 L fL
(81.0-99.0)
MCH 24.9 L pg
(27.0-31.0)
MCHC 32.6 L g/dL
(33.0-37.0)
RDW 15.9 H %
(11.5-14.5)
Glucose 119 H mg/dl
(70-99)
10/04/24 19:55
10/04/24 19:55
Vital Signs
Initial and Last Documented VS:
Initial Vital Signs
Temp Pulse Resp BP Pulse Ox
97.4 F 82 20 142/89 99
10/04/24 19:36 10/04/24 19:36 10/04/24 19:36 10/04/24 19:36 10/04/24 19:36
Last Documented Vital Signs
Temp Pulse Resp BP Pulse Ox
97.4 F 70 32 131/68 97
10/04/24 19:36 10/05/24 02:45 10/05/24 02:45 10/05/24 02:00 10/05/24 02:45
<Raegan Mcmahon DO, Resident - Last Filed: 10/06/24 06:46>
MDM/Problems Addressed
Differential Diagnosis Includes:
Wegovy related abdominal symptoms, cholecystitis
MDM/Problems Addressed:
Blood work unremarkable. Hemoglobin 10.8 within normal baseline value for patient. Ordered D-dimer and lipase. EKG shows normal sinus rhythm, chest x-ray shows no acute cardiopulmonary abnormality. Will order upper abdominal ultrasound.
<Raegan Mcmahon DO, Resident - Last Filed: 10/06/24 06:46>
*Radiology
Radiology exam reviewed: radiology read reviewed
*Pulse Oximetry
SaO2: 100
Oxygen Mode of Delivery: Room air
Patient hypoxic: no
*EKG
Interpreted by ED Provider?: Yes
Interpretation: normal
*Critical Care Note
Total Time (30-74mins, 75-104mins- exclusive of procedures): Not Applicable
ED Attending Note
<Raegan Mcmahon DO, Resident - Last Filed: 10/06/24 06:46>
-
Portions of this chart may have been created with voice recognition software.� Occasional wrong word or��sound alike� substitutions may have occurred due to the inherent limitations of voice recognition software.
<Nikunj Rosales DO - Last Filed: 10/05/24 04:46>
ED Attending Note
Patient seen and examined by attending physician: Yes
I performed a history and physical exam of patient and discussed management with resident, I reviewed resident's note and agree with documented findings and plan of care.: Yes
ED Attending Note:
I reviewed and agree with history and treatment plan by Bell Mcmahon DO. My exam revealed 34-year-old female with mild epigastric pain no respiratory distress. Mild epigastric tenderness, no rebound or guarding. Ultrasound shows
cholelithiasis otherwise no acute findings D-dimer negative. Suspect possibly due to patient taking Wegovy. Stable for discharge. Follow-up with primary care. Return precautions given.
Discharge Plan
Departure
Patient Disposition: Home (Routine Discharge)
Date of Disposition: 10/05/24
Time of Disposition: 02:56
Patient with high blood pressure during this ER visit?: Yes
Condition: Good
Discharge Problem:
Abdominal pain
Instructions: Abdominal pain in adults - ED discharge instructions, BLOOD PRESSURE
Prescriptions:
No Action
omeprazole magnesium [Prilosec OTC] 20 MG tablet,delayed release (DR/EC)
20 mg PO DAILY
bupropion HCl 150 mg Tablet Extended Release 24 Hr
150 mg PO DAILY
cholecalciferol (vitamin D3) [Vitamin D3] 25 mcg (1,000 unit) Tablet
25 mcg PO DAILY
escitalopram oxalate 20 mg Tablet
20 mg PO DAILY
cyanocobalamin (vitamin B-12) 1,000 mcg Tablet
1,000 mcg PO DAILY
ferrous gluconate 270 mg (27 mg iron) tablet
270 mg PO DAILY Qty: 30 0RF
Wegovy 0.25 mg/0.5 mL Pen Injector
0.25 mg SC QWEEK
Referrals:
Thea Marroquin MD [Family Provider, Family Practice] - Call in 1-3 days for appt
Interventions
Interventions:
*Risk Screen - Suicide Last Done: 10/04/24 22:32
*General Assessment Last Done: 10/04/24 19:36
*Neglect/Abuse Screening Last Done: 10/04/24 22:32
*ED- Fall Risk Assessment Last Done: 10/05/24 03:00
*ED COVID-19 Vaccine History Last Done: 10/05/24 03:00
*Nursing Disposition Last Done: 10/05/24 03:00
ED- Cardiac Assessment Last Done: 10/04/24 23:43
ED- Pulmonary Assessment Last Done: 10/04/24 23:43
Discharge Date and Time
Discharge Date/Time: 10/05/24 03:01
Print Language: MACEDONIAN
[2024-10-05] VITALS: BP 134/72
[2024-10-05 01:00] VITALS: BP 117/43
[2024-10-05 01:26] LABS: Lipase 63 U/L (23-300)
[2024-10-05 01:33] LABS: D-Dimer < 0.27 ug/mlFEU (0.00-0.50)
[2024-10-05 01:48] VITALS: BP 128/78
[2024-10-05 02:00] VITALS: BP 131/68
== END 2024-10-05 03:01 | disposition home or self-care (01) ==
LOC: EMR 19:34
PROVIDERS: Student in an Organized Health Care Education/Training Program; EMERGENCY PHYSICIAN Emergency Medicine; FAMILY PHYSICIAN Family Medicine
DX: R10.13 Epigastric pain (principal); R07.89 Other chest pain; K80.20 Calculus of gallbladder without cholecystitis without obstruction; K21.9 Gastro-esophageal reflux disease without esophagitis; E66.9 Obesity, unspecified; Z79.899 Other long term (current) drug therapy; Z87.442 Personal history of urinary calculi
CPT/HCPCS: 99285; 71046; 76700; 80053; 83690; 84484; 85025; 85379; 85730; 93005

== ENCOUNTER → 2024-11-15 09:23 | Outpatient (REF) | payer BC, SELFPAY | LOC: WDC 09:23 | PROVIDERS: ATTENDING PHYSICIAN Obstetrics & Gynecology; FAMILY PHYSICIAN Family Medicine | DX: N63.10 Unspecified lump in the right breast, unspecified quadrant (principal); N63.12 Unspecified lump in the right breast, upper inner quadrant | CPT/HCPCS: 76642; 77062; 77066 ==

== ENCOUNTER 2024-11-22 15:59 | Inpatient (IN) | payer BC, SELFPAY ==
[2024-11-22] VITALS (12 sets, daily range): BP systolic 113–138; BP diastolic 61–98; BMI 75.3
--- NOTE | 2024-11-22 08:19 | ED.GENMED ---
History of Present Illness
<Fransico Beltran PA-C - Last Filed: 11/22/24 15:57>
General
Chief Complaint: Abdominal Pain
Time Seen by Provider: 11/22/24 08:11
History of Present Illness
History of Present Illness:
34-year-old female presents to the emergency department for evaluation of ongoing upper abdominal pain that she feels is related to her recently diagnosed cholelithiasis. Had ultrasound in early September showing cholelithiasis with no signs of
cholecystitis. She states that she has attempted to maintain a low-fat diet however continues to have frequent flareups of pain that occur at least every week. She reports increasing pain this morning along with bloating and diarrhea. Denies any
fevers, chills, or night sweats. No prior abdominal surgical history. Has followed up as an outpatient with general surgery but does not have a planned surgical intervention to date
Past History
<Fransico Beltran PA-C - Last Filed: 11/22/24 15:57>
Past History
ED Past Medical History: GERD and Other (Kidney stones); Negative Asthma, HTN, Hypercholesterolemia or NIDDM
ED Past Surgical History: None
Social History
Tobacco: Non-smoker
Alcohol: None
Drug: None
Personal: Single
Living: with family
Employment: Employed
Family History
Family History: Other (Brother with history of kidney stones)
Review of Systems
<Fransico Beltran PA-C - Last Filed: 11/22/24 15:57>
Review of Systems
Allergies reviewed?: Yes
All Other Systems: ROS reviewed and negative except as documented in HPI and ROS
Phy Exam
<Fransico Beltran PA-C - Last Filed: 11/22/24 15:57>
Physical Exam
Physical Exam:
GEN: Well appearing, NAD, WDWN
HEENT: Oral mucosa moist, no scleral icterus
Cardiac: Regular rate and rhythm, no murmurs
Lung: No respiratory distress, no tachypnea
Abdomen: Morbid obesity limits exam, generally soft with diffuse upper abdominal tenderness, negative Pepper sign
MSK: No gross deformity or injuries
Skin: Good color, no pallor or jaundice, no rashes
Neuro: AO x3, moves all extremities freely
Psych: Calm, cooperative
Course
<Fransico Beltran PA-C - Last Filed: 11/22/24 15:57>
Orders/Labs/Results
Orders:
Orders
11/22/24 08:18
Test Result ONCE
US Abdomen Complete/Upper Urgent
Comment: biliary tree only
Reason For Exam: known cholelithiasis, increased pain
11/22/24 09:57
Complete Blood Count/No Diff Urgent
Comprehensive Metabolic Panel Urgent
HCG, Serum Qualitative Screen Urgent
Lipase Urgent
11/22/24 11:38
Dexamethasone Sod Phosphate [Decadron] 20 mg .ROUTE .STK-MED ONE
Fentanyl Citrate/Pf [Sublimaze] 100 mcg .ROUTE .STK-MED ONE
Lidocaine HCl/Pf [Xylocaine-Mpf 1% Vial] 50 mg .ROUTE .STK-MED ONE
Midazolam HCl [Versed] 2 mg .ROUTE .STK-MED ONE
Ondansetron Injectable [Zofran] 4 mg .ROUTE .STK-MED ONE
Propofol [Diprivan] 20 ml .ROUTE .STK-MED
Rocuronium Monterey [Rocuronium] 50 mg .ROUTE .STK-MED ONE
Sugammadex Sodium [Bridion] 200 mg .ROUTE .STK-MED ONE
11/22/24 12:58
Bupivacaine 0.25%Pf/Epinephrin [Sensorcaine-Epi 0.25%-0.0005] 30 ml .ROUTE .STK-MED ONE
Iohexol [Omnipaque] 50 ml .ROUTE .STK-MED ONE
11/22/24 13:54
Clindamycin 900 mg/50 ml [Cleocin] 900 mg in 50 ml IV NOW
11/22/24 13:59
Clindamycin Phosphate 900 mg .ROUTE .STK-MED ONE
11/22/24 14:33
Fentanyl Citrate/Pf [Sublimaze] 100 mcg .ROUTE .STK-MED ONE
11/22/24 14:39
Ketamine 5 ml .ROUTE .STK-MED
11/22/24 14:41
Rocuronium Monterey [Rocuronium] 50 mg .ROUTE .STK-MED ONE
11/22/24 14:51
Famotidine [Pepcid] 20 mg .ROUTE .STK-MED ONE
HYDROmorphone [Dilaudid] 1 mg .ROUTE .STK-MED ONE
11/22/24 15:03
Labetalol HCl [Trandate] 20 mg .ROUTE .STK-MED ONE
11/22/24 15:24
Glucagon [GlucaGen] 1 mg .ROUTE .STK-MED ONE
11/22/24 15:37
Iohexol [Omnipaque] 50 ml .ROUTE .STK-MED ONE
11/22/24 15:47
Acetaminophen 1000MG/100Ml [Ofirmev] 1,000 mg in 100 ml .ROUTE .STK-MED
11/22/24 15:49
Sugammadex Sodium [Bridion] 400 mg .ROUTE .STK-MED ONE
Abnormal Lab Results
11/22/24
09:57
Hgb 10.9 L g/dL
(12.0-16.0)
Hct 33.5 L %
(37.0-47.0)
MCV 79.2 L fL
(81.0-99.0)
MCH 25.8 L pg
(27.0-31.0)
MCHC 32.5 L g/dL
(33.0-37.0)
RDW 15.8 H %
(11.5-14.5)
11/22/24 09:57
11/22/24 09:57
Vital Signs
Initial and Last Documented VS:
Initial Vital Signs
Temp Pulse Resp BP Pulse Ox
98.3 F 77 18 113/86 98
11/22/24 06:39 11/22/24 06:39 11/22/24 06:39 11/22/24 06:39 11/22/24 06:39
Last Documented Vital Signs
Temp Pulse Resp BP Pulse Ox
98.3 F 63 18 115/67 98
11/22/24 06:39 11/22/24 12:34 11/22/24 12:34 11/22/24 12:34 11/22/24 12:34
<Cas Cabrera, DO - Last Filed: 11/22/24 11:26>
Orders/Labs/Results
Orders:
Orders
11/22/24 08:18
Test Result ONCE
US Abdomen Complete/Upper Urgent
Comment: biliary tree only
Reason For Exam: known cholelithiasis, increased pain
11/22/24 09:57
Complete Blood Count/No Diff Urgent
Comprehensive Metabolic Panel Urgent
HCG, Serum Qualitative Screen Urgent
Lipase Urgent
11/22/24 11:38
Dexamethasone Sod Phosphate [Decadron] 20 mg .ROUTE .STK-MED ONE
Fentanyl Citrate/Pf [Sublimaze] 100 mcg .ROUTE .STK-MED ONE
Lidocaine HCl/Pf [Xylocaine-Mpf 1% Vial] 50 mg .ROUTE .STK-MED ONE
Midazolam HCl [Versed] 2 mg .ROUTE .STK-MED ONE
Ondansetron Injectable [Zofran] 4 mg .ROUTE .STK-MED ONE
Propofol [Diprivan] 20 ml .ROUTE .STK-MED
Rocuronium Monterey [Rocuronium] 50 mg .ROUTE .STK-MED ONE
Sugammadex Sodium [Bridion] 200 mg .ROUTE .STK-MED ONE
11/22/24 12:58
Bupivacaine 0.25%Pf/Epinephrin [Sensorcaine-Epi 0.25%-0.0005] 30 ml .ROUTE .STK-MED ONE
Iohexol [Omnipaque] 50 ml .ROUTE .STK-MED ONE
11/22/24 13:54
Clindamycin 900 mg/50 ml [Cleocin] 900 mg in 50 ml IV NOW
11/22/24 13:59
Clindamycin Phosphate 900 mg .ROUTE .STK-MED ONE
11/22/24 14:33
Fentanyl Citrate/Pf [Sublimaze] 100 mcg .ROUTE .STK-MED ONE
11/22/24 14:39
Ketamine 5 ml .ROUTE .STK-MED
11/22/24 14:41
Rocuronium Monterey [Rocuronium] 50 mg .ROUTE .STK-MED ONE
11/22/24 14:51
Famotidine [Pepcid] 20 mg .ROUTE .STK-MED ONE
HYDROmorphone [Dilaudid] 1 mg .ROUTE .STK-MED ONE
11/22/24 15:03
Labetalol HCl [Trandate] 20 mg .ROUTE .STK-MED ONE
11/22/24 15:24
Glucagon [GlucaGen] 1 mg .ROUTE .STK-MED ONE
11/22/24 15:37
Iohexol [Omnipaque] 50 ml .ROUTE .STK-MED ONE
11/22/24 15:47
Acetaminophen 1000MG/100Ml [Ofirmev] 1,000 mg in 100 ml .ROUTE .STK-MED
11/22/24 15:49
Sugammadex Sodium [Bridion] 400 mg .ROUTE .STK-MED ONE
Abnormal Lab Results
11/22/24
09:57
Hgb 10.9 L g/dL
(12.0-16.0)
Hct 33.5 L %
(37.0-47.0)
MCV 79.2 L fL
(81.0-99.0)
MCH 25.8 L pg
(27.0-31.0)
MCHC 32.5 L g/dL
(33.0-37.0)
RDW 15.8 H %
(11.5-14.5)
11/22/24 09:57
11/22/24 09:57
Vital Signs
Initial and Last Documented VS:
Initial Vital Signs
Temp Pulse Resp BP Pulse Ox
98.3 F 77 18 113/86 98
11/22/24 06:39 11/22/24 06:39 11/22/24 06:39 11/22/24 06:39 11/22/24 06:39
Last Documented Vital Signs
Temp Pulse Resp BP Pulse Ox
98.3 F 63 18 115/67 98
11/22/24 06:39 11/22/24 12:34 11/22/24 12:34 11/22/24 12:34 11/22/24 12:34
<Fransico Beltran PA-C - Last Filed: 11/22/24 15:57>
MDM/Problems Addressed
MDM/Problems Addressed:
Imaging shows dilated common bile duct however normal transaminases are suggestive against choledocholithiasis. Case was reviewed with surgery who will admit the patient to their service and take for laparoscopic intervention
<Fransico Beltran PA-C - Last Filed: 11/22/24 15:57>
*Pulse Oximetry
SaO2: 98
Oxygen Mode of Delivery: Room air
Patient hypoxic: no
*Critical Care Note
Total Time (30-74mins, 75-104mins- exclusive of procedures): Not Applicable
ED Attending Note
<Fransico Beltran PA-C - Last Filed: 11/22/24 15:57>
-
Portions of this chart may have been created with voice recognition software.� Occasional wrong word or��sound alike� substitutions may have occurred due to the inherent limitations of voice recognition software.
<Cas Cabrera DO - Last Filed: 11/22/24 11:26>
ED Attending Note
Patient seen and examined by attending physician: Yes
I performed the substantive portion of visit, reviewed & personally made and approve the management plan that is documented in note by myself or ERROL.: Yes
ED Attending Note:
Seen with PA examined independently agree with assessment and plan 34-year-old female with obesity presents with symptomatic cholelithiasis
Discharge Plan
Departure
Patient Disposition: Admit
Date of Disposition: 11/22/24
Time of Disposition: 11:18
Admit to: Med/Surg
Presentation/result/management discussed w/ accepting MD/DO: Surg- Lambjalen
Discharge Problem:
Cholelithiasis
Interventions
Interventions:
*Risk Screen - Suicide Last Done: 11/22/24 06:39
*General Assessment Last Done: 11/22/24 09:59
*Neglect/Abuse Screening Last Done: 11/22/24 09:59
*ED- Fall Risk Assessment Last Done: 11/22/24 09:59
*ED COVID-19 Vaccine History Last Done: 11/22/24 09:59
*Nursing Disposition Last Done: 11/22/24 13:26
WM-Ttkfsg-Lwoqldgznv Assessment Last Done: 11/22/24 09:59
Discharge Date and Time
Discharge Date/Time: 11/22/24 13:45
[2024-11-22 10:12] LABS: Hematocrit 33.5 % (37.0-47.0); Hemoglobin 10.9 g/dL (12.0-16.0); Mean Corp Hgb Conc. 32.5 g/dL (33.0-37.0); Mean Corpuscular Volume 79.2 fL (81.0-99.0); Platelet Count 254 10^3/uL (130-400); Red Cell Dist. Width 15.8 % (11.5-14.5)
[2024-11-22 10:46] LABS: HCG, Serum Qualitative Screen Negative
[2024-11-22 10:49] LABS: ALT (SGPT) 15 U/L (0-35); AST (SGOT) 15 U/L (14-36); Albumin 4.1 g/dl (3.5-5.0); Alkaline Phosphatase 88 U/L (38-126); Blood Urea Nitrogen 12 mg/dl (7-17); Calcium 9.7 mg/dl (8.4-10.2); Carbon Dioxide 27 mmol/L (22-30); Chloride 104 mmol/L (98-107); Estimated Creatinine Clearance > 125 ml/min; Glucose 95 mg/dl (70-99); Lipase 55 U/L (23-300); Potassium 4.2 mmol/L (3.5-5.1); Sodium 139 mmol/L (135-145); Total Protein 7.4 g/dl (6.3-8.2); eGFR > 60.00
--- NOTE | 2024-11-22 11:30 | W.SUR.PREOP ---
Pre-Operative Surgical Note
-
I have examined this patient prior to the performance of the scheduled procedure.
The patient's condition is unchanged from the time of the current History and
Physical and the patient is able to undergo the scheduled procedure.
--- NOTE | 2024-11-22 13:55 | HPS.HSE ---
Family Physician
-
Family Physician: Thea Marroquin MD
Chief Complaint
-
Abdominal pain
History of Present Illness
Patient is a 34 yo F with a PMH of severe morbid obesity, GERD, depression/anxiety, pilonidal disease, and known symptomatic cholelithiasis. She now presents with issues of abdominal discomfort. No nausea or vomiting. No fevers or chills. No
jaundice, pale stools, or tea colored urine. No significant changes from her prior outpatient evaluation.
Medical History
Past Medical History
Past Medical History: Reports GERD and Other (Obesity, nephrolithiasis, pilonidal disease)
Past Surgical History: Reports None
Social History
Tobacco: Non-smoker
Alcohol: None
Drug: None
Family History
Family History: Not pertinent
Allergies / Home Medications
Allergies reflects when Allergies were last updated in [facility].
Home Medications with original date entered in [facility]
Allergy/Medication List:
Sulfa, PCN
Review of Systems
-
A 12 point ROS was completed and negative except as noted: Yes
Physical Exam
Vital Signs
Vital Signs
Temp Pulse Resp BP Pulse Ox
98.3 F 63 18 115/67 98
11/22/24 06:39 11/22/24 12:34 11/22/24 12:34 11/22/24 12:34 11/22/24 12:34
Physical Exam
General: Well Developed, Well Nourished and No Apparent Distress
HEENT: NormoCephalic and Anicteric
Respiratory: Non Labored Respirations
Cardiac: Regular Rhythm
GI: Soft, Non Distended, Tender and Other (Non-peritoneal)
Skin: Warm and Dry
Neuro: Nonfocal/grossly intact
Laboratory Results
-
11/22/24 09:57
11/22/24 09:57
Laboratory Results
Total Bilirubin 0.4 mg/dl (0.2-1.3) 11/22/24 09:57
AST 15 U/L (14-36) 11/22/24 09:57
ALT 15 U/L (0-35) 11/22/24 09:57
Alkaline Phosphatase 88 U/L (38-126) 11/22/24 09:57
Lipase 55 U/L (23-300) 11/22/24 09:57
Data Reviewed
-
Ultrasound: Image Personally Visualized and interpreted and Report Reviewed by me
Lab Data: Labs Reviewed by me
Impression/Plan
-
IMPRESSION:
Patient is a 34 yo F p/w symptomatic cholelithiasis
Previous discussions regarding the natural history and pathophysiology of biliary and stone disease. Anatomy was again reviewed. Most recent ultrasound demonstrating dilation of the CBD with concern for possible choledocholithiasis was discussed.
Options for management reviewed. Plan for cholecystectomy.
Plan for laparoscopic cholecystectomy with cholangiogram. The procedure itself, as well as the risks, benefits, and alternatives was discussed. Specifically, we discussed the risks of bleeding, infection, injury to surrounding structures (bowel,
bile ducts), CBD injury, need for open procedure. Typical postprocedural recovery was discussed. All questions answered. Consent signed.
PLAN:
-- Laparoscopic cholecystectomy with cholangiogram
-- NPO, IVF
-- Antibiotics: Clindamycin
--- NOTE | 2024-11-22 16:03 | W.IMMPOSTOP ---
Surgical Immed Post Op Note
-
Primary Surgeon: Yeison
Assisting Surgeon: VINCE Jacobo
Pre-op Diagnosis: Symptomatic cholelithiasis
Post-op Diagnosis: Choledocholithiasis
Procedure Performed: Laparoscopic cholecystectomy with IOC and LCBDE
Anesthesia Type: General
Specimen / Cultures:
1. Gallbladder
Estimated Blood Loss: 7 cc
Complications: None
Operative Findings:
1. Shrunken GB, wall thickening, fatty infiltrate, small cholesterol stones
2. Critical view
3. IOC with filling defect in CBD, persistent despite Glucagon, flushing, wire, catheter
4. Duct slips, artery electrocautery high on GB
[2024-11-22] MEDS: DILAUDID 0.25 MG IV (16:39)
[2024-11-22] MEDS: ZOFRAN 4 MG IV (16:40)
[2024-11-22] MEDS: NORMOSOL-R/PLASMALYTE-A 1000 IV (18:12)
[2024-11-22] MEDS: TYLENOL 650 MG PO (21:27)
[2024-11-23] VITALS (8 sets, daily range): BP systolic 119–152; BP diastolic 73–97
[2024-11-23] MEDS: NORMOSOL-R/PLASMALYTE-A 1000 IV ×2 (03:27→16:21)
[2024-11-23] MEDS: TYLENOL PO (03:31)
[2024-11-23 06:46] LABS: Hematocrit 34.7 % (37.0-47.0); Hemoglobin 11.4 g/dL (12.0-16.0); Mean Corp Hgb Conc. 32.9 g/dL (33.0-37.0); Mean Corpuscular Volume 81.1 fL (81.0-99.0); Platelet Count 254 10^3/uL (130-400); Red Cell Dist. Width 15.7 % (11.5-14.5)
--- NOTE | 2024-11-23 06:51 | CON.GI ---
Addendum entered and electronically signed by Eusebia Barrow Do, MD 11/23/24 10:03:
I saw and examined the patient.
The WOOD HANDLER's note was reviewed and I agree with the note.
Comment: Chantelle is a 34yo W with BMI 75 started on ozempic in 09/2024 with wt loss. Admitted for abd pain and had CYY done by Dr Latham 11/22 with + IOC. She has some incisional site pain. Denies AC last dose of ozempic was in September. Vitals
stable exam young appearing obese abd NTT. Labs reviewed LFTs rising.
Impression
- Choledocholithiasis seen on IOC
- S/p CYY POD #1
- Obesity BMI 75
- GERD
- Anxiety
- H/o kidney stones
Recommendations
- NPO for ERCP today
- Case reviewed with Dr Freeman
- Start cipro/flagyl
- Serial LFTs
Will follow with you
Addendum entered and electronically signed by STEVE Ruiz 11/23/24 09:10:
reviewed with Dr. sanders and surgical team will add antibiotics
hold Lovenox and Toradol and add compression stocking
Addendum entered and electronically signed by STEVE Ruiz 11/23/24 09:00:
reviewed wit patient with anemia she does have hx heavy menses- if anemia persists consider OP GI evaluation
Original Note:
Consultation
-
Date/Time Consultation Requested: 11/22/24 1600
Date/Time Consultation Performed: 11/23/24 0830
Requesting Provider: Percy Latham MD
Performing Provider: STEVE Grimm, Eusebia Sanders MD
Reason for Consultation: + IOC
Medical History
Chief Complaint / HPI
History of Present Illness:
Pt is a 34yo obesity with BMI 75 on Ozempic with last dose mid September, GERD on Omeprazole, anxiety, renal stones with prior intervention presents to ER 11/22 with upper abdominal pain with hx cholelithiasis with normal LFT's on admission. US 11/22
CBD dilated 10mm with small stone sub optimal GB eval. Pt went for winnie with + IOC with filling defect unable to clear and asked to see for ERCP. In review with patient she had been on Ozempic prior to admission with wt loss then began with
intermittent post prandial pain. She is feeling well post winnie with minimal incisional pain. She had chronic GERD on Omeprazole and some dark urine this am but denies dysphagia, vomiting, diarrhea, constipation or rectal bleeding. No NSAID or AC
use. No prior EGD/colonoscopy in past. Some rise in LFT's after admission to bili 1.9, AST 294, ALT 220, alk phos 162.
Past Medical History
Past Medical History: GERD, Psychiatric (anxiety) and Other (kidney stones, pilonidal cyst, KENNETH, I+D andres rectal abscess,obesity )
Past Surgical History: Cholecystectomy (11/22/24 ) and Urological (uteroscopy, ureteral stenting )
Social History
Tobacco: Non-Smoker
Alcohol: Occasional
Drug: None
Living: With Roomate
Employment: Employed
Family History
Family History: Other (no family hx gallbladder issues. No family hx GI issues or cancers )
Allergies / Home Medications
Allergy/AdvReac Type Severity Reaction Status Date / Time
amoxicillin (Amoxicillin) Allergy Rash-tolerates Verified 11/22/24 16:36
ceftriaxone
Penicillins Allergy itching, Verified 11/22/24 16:36
rash-tolerates
ceftriaxone
sulfamethoxazole (From Allergy Itching-itchy Verified 11/22/24 16:36
Bactrim) feet
trimethoprim (From Bactrim) Allergy Itching-itchy Verified 11/22/24 16:36
feet
�Medication �Instructions �Recorded
omeprazole magnesium 20 mg 20 mg PO DAILY Gastrointestinal 10/17/18
tablet,delayed release (Prilosec Issue
OTC)
bupropion HCl 150 mg 24 hr tablet, 150 mg PO DAILY Mental 06/01/24
extended release Health/Anxiety
cholecalciferol (vitamin D3) 25 25 mcg PO DAILY Supplement 06/01/24
mcg (1,000 unit) tablet (Vitamin
D3)
escitalopram oxalate 20 mg tablet 20 mg PO DAILY Mental 06/01/24
Health/Anxiety
ferrous gluconate 270 mg (27 mg 270 mg PO DAILY anemia #30 tabs 06/10/24
iron) tablet
cyanocobalamin (vitamin B-12) 500 500 mcg PO DAILY 11/15/24
mcg tablet
Review of Systems
-
History Source: Patient
Constitutional: Reports Weight Loss ( 50 lbs)
EENT: Reports No Symptoms
Respiratory: Reports No Symptoms
Abdomen/GI: Reports Abdominal Pain and Nausea
: Reports Dark Urine
Musculoskeletal: Reports No Symptoms
Skin: Reports No Symptoms
Neurological: Reports No Symptoms
Endocrine: Reports No Symptoms
Hematologic/Lymphatic: Reports No Symptoms
Vital Signs
Temp Pulse Resp BP Pulse Ox
98.6 F 57 17 144/80 96
11/23/24 03:12 11/23/24 03:12 11/23/24 03:12 11/23/24 03:12 11/23/24 03:12
Physical Exam
Exam
General: Well Developed, Well Nourished and No Apparent Distress
HEENT: Normocephalic and Anicteric
Respiratory: Clear
Cardiac: Regular Rhythm
GI: Soft, Non Distended and Tender (minimal around incisional sites )
Musculoskeletal: No Clubbing and No Cyanosis
Skin: Warm and Dry
Neuro: Awake, Alert and AO x 3
Psych: Calm
Results
WBC 7.4 10^3/uL (4.8-10.8) 11/23/24 05:55
Hgb 11.4 g/dL (12.0-16.0) L 11/23/24 05:55
Hct 34.7 % (37.0-47.0) L 11/23/24 05:55
MCV 81.1 fL (81.0-99.0) 11/23/24 05:55
Plt Count 254 10^3/uL (130-400) 11/23/24 05:55
Sodium 139 mmol/L (135-145) 11/22/24 09:57
Potassium 4.2 mmol/L (3.5-5.1) 11/22/24 09:57
Chloride 104 mmol/L (98-107) 11/22/24 09:57
Carbon Dioxide 27 mmol/L (22-30) 11/22/24 09:57
BUN 12 mg/dl (7-17) 11/22/24 09:57
Creatinine 0.6 mg/dL (0.6-1.0) 11/22/24 09:57
Calcium 9.7 mg/dl (8.4-10.2) 11/22/24 09:57
Total Bilirubin 0.4 mg/dl (0.2-1.3) 11/22/24 09:57
AST 15 U/L (14-36) 11/22/24 09:57
ALT 15 U/L (0-35) 11/22/24 09:57
Alkaline Phosphatase 88 U/L (38-126) 11/22/24 09:57
Lipase 55 U/L (23-300) 11/22/24 09:57
Diagnostic Image Results:
11/22/24 US Abdomen Complete/Upper
Limited sonographic examination secondary to body habitus and bowel gas artifact.
The common bile duct is dilated and measures 10 mm in diameter. A small echogenic focus within the common bile duct may reflect choledocholithiasis. Consider a follow-up MRCP or ERCP.
Suboptimal evaluation of the gallbladder. Either contracted or near completely opacified by gallstones.
Prior GI Procedures:
EGD: none
Colonoscopy: none
Assessment / Plan
-
Pt is a 34yo obesity, GERD, anxiety, renal stones with prior intervention presents to ER 11/22 with upper abdominal pain with hx cholelithiasis with normal LFT's on admission. US 11/22 CBD dilated 10mm with small stone sub optimal GB eval. Pt went
for winnie with + IOC with filling defect unable to clear and asked to see for ERCP.some rise in LFT's after admission to bili 1.9, AST 294, ALT 220, alk phos 162.
-s/p lap winnie 11/22 with + IOC
-recent wt loss 50 lb with Ozempic use
-obesity with BMI 75.2
-microcytic anemia
other med problems:
-GERD
-Anxiety
-renal stones
PLAN:
noted + IOC with lap winnie 11/22
some rise in LFT's after admission to bili 1.9, AST 294, ALT 220, alk phos 162- cont to trend
plan for ERCP today reviewed risk/benefits of procedure including and not limited to bleeding, infection, perforation, pancreatitis
NPO
Ozempic last dose mid September
surgical team following postop
-
-
Thank you for consultation and allowing me to participate in the patient's care. Please call the director occupational GI physician during the after hours with any questions or concerns.
[2024-11-23] MEDS: NSS (PRESERVATIVE FREE) 10 ML IV (07:04)
[2024-11-23] MEDS: TYLENOL 650 MG PO ×4 (07:04→20:02)
[2024-11-23] MEDS: PROTONIX IV 40 MG IV (07:04)
[2024-11-23 07:19] LABS: ALT (SGPT) 220 U/L (0-35); AST (SGOT) 294 U/L (14-36); Albumin 4.0 g/dl (3.5-5.0); Alkaline Phosphatase 162 U/L (38-126); Blood Urea Nitrogen 7 mg/dl (7-17); Calcium 8.7 mg/dl (8.4-10.2); Carbon Dioxide 22 mmol/L (22-30); Chloride 107 mmol/L (98-107); Estimated Creatinine Clearance > 125 ml/min; Glucose 93 mg/dl (70-99); Potassium 4.6 mmol/L (3.5-5.1); Sodium 138 mmol/L (135-145); Total Protein 6.9 g/dl (6.3-8.2); eGFR > 60.00
[2024-11-23] MEDS: CIPRO 400 MG 200 IV ×2 (10:16→22:21)
[2024-11-23] MEDS: FLAGYL 500 MG 100 IV ×2 (10:17→17:09)
--- NOTE | 2024-11-23 10:25 | CM ---
Reviewed the chart notes and spoke with the patient at the bedside. Patient resides with her parents in a two story home with four steps to enter. The patient reports only DME is a CPAP machine. No VN or SNF in the past. The patient confirmed
her pharmacy of choice is [facility]. CM continues to be available to patient/family and is monitoring medical plan for needs at discharge.
Plan: Discharge to home when medically stable. No anticipated needs identified at this time.
--- NOTE | 2024-11-23 13:19 | W.PN.GS2 ---
Today's Communication / Plan
-
-- GI consult, ERCP
Assessment / Plan
-
Patient is a 34 yo F POD#1 s/p laparoscopic cholecystectomy with IOC, found to have choledocholithiasis
AVSS
Labs notable for normal WBC, stable Hb, normal platelets, elevated bilirubin, LFTs, and ALP
Cholangiogram notable for choledocholithiasis. GI consulted. Recommended plan for ERCP. No concerns from a postcholecystectomy standpoint.
-- GI consult, ERCP
-- NPO, IVF
-- Abx: per GI
-- Pain control: Tylenol, IV Dilaudid PRN, Toradol per GI
-- DVT: Lovenox, SCDs
-- GI: PPI
Subjective Data
-
Date of Service: November 23, 2024
Abdominal soreness. No nausea or vomiting. No fevers.
Objective Data
-
Intake and Output
11/22/24 11/23/24 11/24/24
06:59 06:59 06:59
Intake Total 1275 / 1275
Balance 1275 / 1275
Intake:
IV fluids (Total) 1275 / 1275
normosol 75 / 75
Other:
Number of approximated MODERATE 1
amounts of urine
Number of approximated LARGE 1
amounts of urine
Vital Signs
Temp Pulse Resp BP Pulse Ox
98.0 F 57 16 152/83 96
11/23/24 07:40 11/23/24 07:40 11/23/24 07:40 11/23/24 07:40 11/23/24 07:40
Lab Results
11/23/24 05:55
11/23/24 05:55
Calcium 8.7 mg/dl (8.4-10.2) 11/23/24 05:55
Total Bilirubin 1.9 mg/dl (0.2-1.3) H D 11/23/24 05:55
AST 294 U/L (14-36) H 11/23/24 05:55
ALT 220 U/L (0-35) H 11/23/24 05:55
Alkaline Phosphatase 162 U/L (38-126) H 11/23/24 05:55
Total Protein 6.9 g/dl (6.3-8.2) 11/23/24 05:55
Albumin 4.0 g/dl (3.5-5.0) 11/23/24 05:55
Physical Exam
-
Gen: NAD
Abd: soft, mild tenderness, ND/obese, non-peritoneal, incisions c/d/i - no erythema, ecchymosis or drainage
Patient has a coates catheter: No
Patient has a central line: No
[2024-11-24] MEDS: TYLENOL PO ×2 (00:47→04:45)
[2024-11-24] MEDS: FLAGYL 500 MG 100 IV ×2 (01:58→09:54)
[2024-11-24] MEDS: NORMOSOL-R/PLASMALYTE-A 1000 IV (04:45)
--- NOTE | 2024-11-24 06:13 | PTCARENOTE ---
Pt had episode during night of coughing and expectorating large amt thick mucus with blood. No clots noted. 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 No further episodes.
[2024-11-24 07:29] LABS: Hematocrit 33.6 % (37.0-47.0); Hemoglobin 10.7 g/dL (12.0-16.0); Mean Corp Hgb Conc. 31.8 g/dL (33.0-37.0); Mean Corpuscular Volume 81.8 fL (81.0-99.0); Platelet Count 238 10^3/uL (130-400); Red Cell Dist. Width 16.1 % (11.5-14.5)
[2024-11-24] MEDS: NSS (PRESERVATIVE FREE) 10 ML IV (07:32)
[2024-11-24] MEDS: PROTONIX IV 40 MG IV (07:32)
[2024-11-24] MEDS: TYLENOL 650 MG PO (07:32)
[2024-11-24 07:45] VITALS: BP 94/51
[2024-11-24 08:11] LABS: ALT (SGPT) 297 U/L (0-35); AST (SGOT) 239 U/L (14-36); Albumin 3.5 g/dl (3.5-5.0); Alkaline Phosphatase 179 U/L (38-126); Blood Urea Nitrogen 10 mg/dl (7-17); Calcium 8.3 mg/dl (8.4-10.2); Carbon Dioxide 24 mmol/L (22-30); Chloride 107 mmol/L (98-107); Estimated Creatinine Clearance > 125 ml/min; Glucose 87 mg/dl (70-99); Potassium 4.0 mmol/L (3.5-5.1); Sodium 138 mmol/L (135-145); Total Protein 6.4 g/dl (6.3-8.2); eGFR > 60.00
[2024-11-24 08:14] VITALS: BMI 75.3
--- NOTE | 2024-11-24 08:23 | W.PN.GI.CBS2 ---
Today's Communication / Plan
-
Will advance diet
Trend LFTs
Repeat ERCP in [address] Freeman
Assessment / Plan
-
Pt is a 34yo obesity, GERD, anxiety, renal stones with prior intervention presents to ER 11/22 with upper abdominal pain with hx cholelithiasis with normal LFT's on admission. US 11/22 CBD dilated 10mm with small stone sub optimal GB eval. Pt went
for winnie with + IOC with filling defect unable to clear and asked to see for ERCP.some rise in LFT's after admission to bili 1.9, AST 294, ALT 220, alk phos 162.
-s/p lap winnie 11/22 with + IOC
-recent wt loss 50 lb with Ozempic use
-obesity with BMI 75.2
-microcytic anemia
other med problems:
-GERD
-Anxiety
-renal stones
Assessment and plan
Status post cholecystectomy 11/22 with positive IOC. Status post ERCP 11/23 with sphincterotomy and balloon sweep, small amount of sludge was noted no stone was noted. She also has stent placed into the common hepatic duct. Will advance diet.
Postop care per surgery. Continue to trend LFTs bilirubin is trending down, still elevated transaminases. Likely has baseline fatty liver with mildly elevated transaminases. Per Dr. Freeman plan is to repeat ERCP in 4 weeks to repeat balloon sweep
and remove stent.
Follow-up with GI as outpatient.
Will sign off and will be available as needed
Subjective
Subjective
Date of Service: November 24, 2024
Tolerating clear liquids, currently denies pain. Afebrile.
Objective
Data Reviewed
Laboratory Data:
Laboratory Results
11/24/24 06:38
11/24/24 06:38
Laboratory Results
Total Bilirubin 1.2 mg/dl (0.2-1.3) 11/24/24 06:38
AST 239 U/L (14-36) H 11/24/24 06:38
ALT 297 U/L (0-35) H 11/24/24 06:38
Alkaline Phosphatase 179 U/L (38-126) H 11/24/24 06:38
Lipase 55 U/L (23-300) 11/22/24 09:57
Vital Signs and I&O:
Vital Signs
Temp Pulse Resp BP Pulse Ox
98.6 F 66 16 119/73 92
11/23/24 23:00 11/23/24 23:00 11/23/24 23:00 11/23/24 23:00 11/23/24 23:00
I&O
11/23/24 11/24/24 11/25/24
06:59 06:59 06:59
Intake Total 1275 / 1275 1300 / 1300
Balance 1275 / 1275 1300 / 1300
Physical Exam
Physical Exam
Cardiology: Normal Sinus Rhythm
Pulmonary: Clear
GI: Non Distended, Non Tender and Normal Bowel Sounds
--- NOTE | 2024-11-24 08:58 | W.PN.GS2 ---
Today's Communication / Plan
-
-- LFD
-- HLIV
-- Pain control: Tylenol, Toradol, Oxycodone
-- DC today, pending dietary tolerance
-- Outpatient lab trend per GI
Assessment / Plan
-
Patient is a 34 yo F
POD#2 s/p laparoscopic cholecystectomy with IOC, found to have choledocholithiasis
POD#1 s/p ERCP with stent placement
AVSS
Labs notable for normal WBC, stable Hb, normal platelets, normalized bilirubin and down trending LFTs
Cholangiogram notable for choledocholithiasis. GI consulted. Recommended plan for ERCP. No concerns from a postcholecystectomy standpoint.
-- LFD
-- HLIV
-- Abx: per GI
-- Pain control: Tylenol, Toradol, Oxycodone
-- DVT: Lovenox, SCDs
-- GI: PPI
-- DC today, pending dietary tolerance
-- Outpatient lab trend per GI
Subjective Data
-
Reports some slight soreness in her epigastrium overlying her incision, overall well-controlled. No back pain. No nausea or vomiting. No fevers or chills. Passing flatus.Date of Service: November 24, 2024
Objective Data
-
Intake and Output
11/23/24 11/24/24 11/25/24
06:59 06:59 06:59
Intake Total 1275 / 1275 1300 / 1300
Balance 1275 / 1275 1300 / 1300
Intake:
IV fluids (Total) 1275 / 1275 1100 / 1100
lactacted ringer 100 / 100
normosol 75 / 75
IV piggybacks 200 / 200
Other:
Number of approximated MODERATE 1
amounts of urine
Number of approximated LARGE 1 1
amounts of urine
Vital Signs
Temp Pulse Resp BP Pulse Ox
98.2 F 72 16 94/51 92
11/24/24 07:45 11/24/24 07:45 11/24/24 07:45 11/24/24 07:45 11/24/24 07:45
Lab Results
11/24/24 06:38
11/24/24 06:38
Calcium 8.3 mg/dl (8.4-10.2) L 11/24/24 06:38
Total Bilirubin 1.2 mg/dl (0.2-1.3) 11/24/24 06:38
AST 239 U/L (14-36) H 11/24/24 06:38
ALT 297 U/L (0-35) H 11/24/24 06:38
Alkaline Phosphatase 179 U/L (38-126) H 11/24/24 06:38
Total Protein 6.4 g/dl (6.3-8.2) 11/24/24 06:38
Albumin 3.5 g/dl (3.5-5.0) 11/24/24 06:38
Physical Exam
-
Gen: NAD
Abd: soft, mild tenderness in epigasrium, obese, non-peritoneal, incisions c/d/i - no erythema, ecchymosis or drainage
Patient has a coates catheter: No
Patient has a central line: No
[2024-11-24] MEDS: CIPRO 400 MG 200 IV (09:53)
--- NOTE | 2024-11-24 13:30 | W.DS.TRANS ---
Addendum entered and electronically signed by STEVE Avila 11/24/24 14:17:
dictated #[id number]
Original Note:
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
-
Discharge Instructions:
Discharge Diagnosis/Procedures Laparoscopic cholecystectomy with cholangiogram;
ERCP
Diet Regular,Low Fat
Additional Diets If issues of bloating or diarrhea follow a low-
fat diet
Activity No strenuous activity
Additional Activity No heavy lifting (>20 lbs) for 2 to 3 weeks
postoperatively
Driving Restrictions No driving if too sore or taking narcotics
Bathing Restrictions OK to Shower
Blood Work LFT's in 3-5 days
Wound Care Keep incisions clean and dry. Glue will flake
off in 2 to 3 weeks. Stitches will dissolve.
Use ice to the abdomen to reduce any bruising or
swelling.
Instructions:
Stand-Alone Forms:
Changes to Home Medications: No
Discharge Medications:
DC Medications w/original date entered in [employer]
omeprazole magnesium 20 mg tablet,delayed release (Prilosec OTC) 20 mg PO DAILY Gastrointestinal Issue 10/17/18
bupropion HCl 150 mg 24 hr tablet, extended release 150 mg PO DAILY Mental Health/Anxiety 06/01/24
cholecalciferol (vitamin D3) 25 mcg (1,000 unit) tablet (Vitamin D3) 25 mcg PO DAILY Supplement 06/01/24
escitalopram oxalate 20 mg tablet 20 mg PO DAILY Mental Health/Anxiety 06/01/24
ferrous gluconate 270 mg (27 mg iron) tablet 270 mg PO DAILY anemia #30 tabs 06/10/24
cyanocobalamin (vitamin B-12) 500 mcg tablet 500 mcg PO DAILY Supplement 11/15/24
acetaminophen 325 mg tablet 650 mg (2 x 325 mg) PO Q4HPRN PRN mild pain #1 tab 11/24/24
ibuprofen 200 mg tablet 400 - 600 mg (2 - 3 x 200 mg) PO Q6HPRN PRN moderate pain #1 tab 11/24/24
oxycodone 5 mg tablet 5 mg PO Q4HPRN PRN breakthrough/severe pain #10 tabs 11/24/24
Home Medication Changes
Pending Results: No
--- NOTE | 2024-11-24 13:51 | CM ---
CM reviewed chart, patient for d/c today.
Patient plan d/c home no needs.
Plan; home no needs
[2024-11-24 14:22] VITALS: BP 120/76
== END 2024-11-24 14:36 | disposition home or self-care (01) | DRG 412 ==
LOC: 2 SOUTH 15:59
PROVIDERS: Internal Medicine Gastroenterology; Nurse Practitioner Adult Health; Physician Assistant; Radiology Diagnostic Radiology; ADMITTING PHYSICIAN Surgery; CONSULT PHYSICIAN Internal Medicine Gastroenterology; EMERGENCY PHYSICIAN Emergency Medicine; FAMILY PHYSICIAN Family Medicine
PROC: 0FJB4ZZ Inspection of Hepatobiliary Duct, Percutaneous Endoscopic Approach (ICD-10-PCS; 2024-11-22)
PROC: 0FT44ZZ Resection of Gallbladder, Percutaneous Endoscopic Approach (ICD-10-PCS; 2024-11-22)
PROC: BF131ZZ Fluoroscopy of Gallbladder and Bile Ducts using Low Osmolar Contrast (ICD-10-PCS; 2024-11-22)
PROC: 0F778DZ Dilation of Common Hepatic Duct with Intraluminal Device, Via Natural or Artificial Opening Endoscopic (ICD-10-PCS; 2024-11-23)
PROC: BF101ZZ Fluoroscopy of Bile Ducts using Low Osmolar Contrast (ICD-10-PCS; 2024-11-23)
DX: K80.62 Calculus of gallbladder and bile duct with acute cholecystitis without obstruction (principal); Z68.45 Body mass index [BMI] 70 or greater, adult; K21.9 Gastro-esophageal reflux disease without esophagitis; E66.01 Morbid (severe) obesity due to excess calories; G47.33 Obstructive sleep apnea (adult) (pediatric); D50.9 Iron deficiency anemia, unspecified; F41.9 Anxiety disorder, unspecified; F32.A Depression, unspecified; Z88.0 Allergy status to penicillin; Z88.2 Allergy status to sulfonamides; Z87.442 Personal history of urinary calculi; Z88.1 Allergy status to other antibiotic agents
CPT/HCPCS: 74300; 74330; 76000; 76700; 80053; 83690; 84703; 85027; 88304; 99285; A4300; C1769; C2625; J1610

== ENCOUNTER 2024-12-20 11:07 | Day surgery (SDC) | payer BC, SELFPAY ==
[2024-12-20] VITALS (9 sets, daily range): BP systolic 117–171; BP diastolic 72–155; BMI 72.2
[2024-12-20] MEDS: ZOFRAN 4 MG IV (15:44)
[2024-12-20] MEDS: DILAUDID 0.25 MG IV (15:53)
== END 2024-12-20 17:10 | disposition home or self-care (01) ==
LOC: SDS 11:07
PROVIDERS: ATTENDING PHYSICIAN Internal Medicine Gastroenterology
DX: K80.50 Calculus of bile duct without cholangitis or cholecystitis without obstruction (principal); R74.8 Abnormal levels of other serum enzymes
CPT/HCPCS: 43264; 74330; 76000; C1769